=== PATIENT | female | born 2000 | race Caucasian/White ===

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

== ENCOUNTER 2021-01-16 00:48 | Emergency (ER) | payer MEDICAID ==
[~2021-01-16] VITALS: Ht 15.1 cm; Wt 70.3 kg
--- NOTE | 2021-01-16 01:39 | ED Back Pain ---
General Stated Complaint: 13 WKS PREG,CRAMPING OF BACK & SIDES,VOMITING Source of Information: Patient History of Present Illness Date Seen by Provider: Jan 16, 2021 Time Seen by Provider: 01:25 Initial Comments PT ARRIVES VIA POV FROM HOME PT C/O CRAMPING IN LOWER BACK AND BILATERAL FLANK AREA FOR THE LAST WEEK, WORSE TODAY NO ABDOMINAL PAIN NO VAGINAL BLEEDING OR DISCHARGE NO FEVER + NAUSEA, NO VOMITING. NO DIARRHEA NO URINARY SYMPTOMS HAS NOT TAKEN ANYTHING FOR PAIN AT ANY TIME PT STATES SHE IS --DOES NOT KNOW WHEN HER LMP WAS OR HOW FAR ALONG SHE IS DELIVERED 06/07/20, THEN GOT , HAD A MISCARRIAGE 10/06/21--DOES NOT KNOW IF SHE HAS HAD A PERIOD SINCE SHE HAD MISCARRIAGE. DID NOT REQUIRE A D&C. SAW DR. MENESES TODAY FOR THIS PROBLEM. STATES SHE HEARD HEART BEAT. NO TESTS DONE, PER PT. PT HAS HAD 6 VISITS HERE SINCE 10/18/21--ALL FOR PANIC ATTACKS/ANXIETY, EXCEPT FOR THIS VISIT MUCH LATER PT STATES SHE HAD ULTRASOUND SOMETIME LAST MONTH, THAT SHOWED HER TO BE 9 WEEKS GESTATION. Other Comments PCP: [facility], DR MENESES Allergies and Home Medications Allergies Uncoded Allergies: PCN (Allergy, Mild, RASH, 03/01/15) Home Medications Doxylamine Succinate/Vit B6 1 Each Tablet., 2 EACH PO HS Prescribed by: PAM VELEZ on 11/13/20 0413 Ferrous Sulfate 325 Mg Tablet, 325 MG PO DAILY Prescribed by: JOCELYN MENESES on 06/08/20 141 Hydroxyzine Pamoate 25 Mg Capsule, 25 MG PO Q6H PRN for ANXIETY Prescribed by: PAM VELEZ on 10/18/20 0137 Ibuprofen 600 Mg Tablet, 600 MG PO Q6H PRN for PAIN-MODERATE (5-7) Prescribed by: JOCELYN MENESES on 06/08/20 141 Loratadine 10 Mg Tablet, 10 MG PO DAILY, (Reported) Vit No.124/Iron/FA 1 Each Tablet, 1 EACH PO DAILY Prescribed by: JOCELYN MENESES on 06/08/20 141 Patient Home Medication List Home Medication List Reviewed: Yes Review of Systems Constitutional: no symptoms reported Gastrointestinal: see HPI; No abdominal pain, No constipation, No diarrhea; nausea; No vomiting Genitourinary: no symptoms reported : Yes LMP: Oct 06, 2020 (MISCARRIAGE) Control/STD Prophylaxis: None Musculoskeletal: see HPI, back pain Skin: no symptoms reported Psychiatric/Neurological: No Symptoms Reported Past Jnrcdkf-Ylebbi-Zlpjfh Hx Past Med/Social Hx: Reviewed and Corrections made Patient Social History Alcohol Use: Denies Use Drug of Choice: C Smoking Status: Current Everyday Smoker (1/2 PPD) Type Used: Cigarettes 2nd Hand Smoke Exposure: No Recent Hopitalizations: No Substance type: Marijuana Immunizations Up To Date Tetanus Booster (TDap): Unknown PED Vaccines UTD: Yes Seasonal Allergies Seasonal Allergies: Yes Past Medical History Surgeries: No Respiratory: No Cardiac: No Neurological: Yes Headaches /Migraines : Yes Reproductive Disorders: Yes Female Reproductive Disorders: Ovarian Cyst Sexually Transmitted Disease: Yes (CHLAMYDIA AND TRICHOMONAS) Genitourinary: No Gastrointestinal: Yes Gastroesophageal Reflux, Hiatal Hernia Musculoskeletal: No Endocrine: No HEENT: No Cancer: No Psychosocial: Yes Anxiety, Depression Integumentary: No Blood Disorders: No Adverse Reaction/Blood Tranf: No Family Medical History FH: ovarian cancer 19 MOTHER Guillain-Bricelyn syndrome 19 MOTHER No Pertinent Family Hx Physical Exam Vital Signs Vital Signs - First Documented 01/16/21 01:24 Temp 36.5 Pulse 89 Resp 18 B/P (MAP) 103/59 Pulse Ox 100 Capillary Refill : Height, Weight, BMI Height: 5'5" Weight: 120lbs. oz. 54.939203cp; 24.00 BMI Method:Stated General Appearance: No Apparent Distress, WD/WN, Other (WALKS UPRIGHT AND MOVES WITHOUT DIFFICULTY. DOES NOT APPEAR TO BE IN ANY DISCOMFORT OR DISTRESS. ) Cardiovascular: Regular Rate, Rhythm, No Edema, No Murmur, Normal Peripheral Pulses Respiratory: Normal Breath Sounds Gastrointestinal: Normal Bowel Sounds, No Organomegaly, No Pulsatile Mass, Non Tender, Soft, Other (UNABLE TO PALPATE FUNDUS. ) Back: Other (MILD BILATERAL FLANK AND LOWER LUMBAR TENDERNESS. 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 Skin: Normal Color, Warm/Dry, Tattoos/Piercings (MULTIPLE TATTOOS) Progress/Results/Core Measures Results/Orders Lab Results Laboratory Tests Test 01/16/21 02:00 Range/Units Urine Color YELLOW Urine Clarity CLEAR Urine pH 7.0 5-9 Urine Specific [place] 1.020 1.016-1.022 Urine Protein NEGATIVE NEGATIVE Urine Glucose (UA) NEGATIVE NEGATIVE Urine Ketones NEGATIVE NEGATIVE Urine Nitrite NEGATIVE NEGATIVE Urine Bilirubin NEGATIVE NEGATIVE Urine Urobilinogen 0.2 < = 1.0 MG/DL Urine Leukocyte Esterase NEGATIVE NEGATIVE Urine RBC (Auto) NEGATIVE NEGATIVE Urine RBC NONE /HPF Urine WBC NONE /HPF Urine Squamous Epithelial Cells 5-10 /HPF Urine Crystals PRESENT H /LPF Urine Amorphous Sediment LARGE ELIDIA URATES H /LPF Urine Bacteria NEGATIVE /HPF Urine Casts NONE /LPF Urine Mucus NEGATIVE /LPF Urine Culture Indicated NO Urine Opiates Screen NEGATIVE NEGATIVE Urine Oxycodone Screen NEGATIVE NEGATIVE Urine Methadone Screen NEGATIVE NEGATIVE Urine Propoxyphene Screen NEGATIVE NEGATIVE Urine Barbiturates Screen NEGATIVE NEGATIVE Ur Tricyclic Antidepressants Screen NEGATIVE NEGATIVE Urine Phencyclidine Screen NEGATIVE NEGATIVE Urine Amphetamines Screen NEGATIVE NEGATIVE Urine Methamphetamines Screen NEGATIVE NEGATIVE Urine Benzodiazepines Screen NEGATIVE NEGATIVE Urine Cocaine Screen NEGATIVE NEGATIVE Urine Cannabinoids Screen NEGATIVE NEGATIVE My Orders Orders - YVETTE STRANGE DO Heart Tones (01/16/21 01:32) Straight Cath For Spec.-Adult (01/16/21 01:32) Ua Culture If Indicated (01/16/21 01:32) Drug Screen Stat (Urine) (01/16/21 01:39) Vital Signs/I&O 01/16/21 01/16/21 01:24 03:13 Temp 36.5 Pulse 89 75 Resp 18 18 B/P (MAP) 103/59 Pulse Ox 100 99 Progress Progress Note : Progress Note FHT'S 154 NO COMPLAINT OF PAIN FOR REMAINDER OF ER STAY AND SLEPT SOUNDLY FOR REMAINDER OF ER STAY Departure Impression Primary Impression: LOW BACK PAIN IN EARLY Disposition: HOME, SELF-CARE Condition: Stable Departure-Patient Inst. Referrals: JOCELYN MENESES MD (PCP/Family) Primary Care Physician Patient Instructions: How to Adapt to Physical Changes During , How to Plan and Prepare for a Healthy Add. Discharge Instructions: MOIST HEAT TO BACK TYLENOL NEEDED FOR PAIN FOLLOW UP WITH DR. MENESES THIS WEEK FOR FURTHER CARE YVETTE STRANGE DO Jan 16, 2021 01:39
[2021-01-16 02:07] LABS: BILIRUBIN,URINE NEGATIVE (NEGATIVE); CLARITY,URINE CLEAR; COLOR,URINE YELLOW; GLUCOSE, URINE (UA) NEGATIVE (NEGATIVE); KETONES,URINE NEGATIVE (NEGATIVE); LEUKOCYTE ESTERASE ,URINE NEGATIVE (NEGATIVE); NITRITE,URINE NEGATIVE (NEGATIVE); PROTEIN,URINE NEGATIVE (NEGATIVE)
[2021-01-16 02:15] LABS: AMORPHOUS SEDIMENT,UR LARGE AMOR URATES /LPF; BACTERIA,URINE NEGATIVE /HPF
[2021-01-16 02:19] LABS: AMPHETAMINE SCREEN, URINE NEGATIVE (NEGATIVE); BENZODIAZEPINES SCREEN URINE NEGATIVE (NEGATIVE); COCAINE SCREEN URINE NEGATIVE (NEGATIVE); METHAMPHETAMINE SCREEN URINE S NEGATIVE (NEGATIVE)
[2021-01-16 02:20] LABS: BARBITURATE SCREEN URINE NEGATIVE (NEGATIVE); CANNABINOID SCREEN, URINE NEGATIVE (NEGATIVE); METHADONE STAT NEGATIVE (NEGATIVE); OPIATE SCREEN URINE NEGATIVE (NEGATIVE); OXYCODONE STAT NEGATIVE (NEGATIVE); PROPOXYPHENE STAT NEGATIVE (NEGATIVE); TRICYCLIC ANTIDEPRESSANTS SCRE NEGATIVE (NEGATIVE)
== END 2021-01-16 03:15 | disposition home or self-care (01) ==
LOC: EDUNIT# 00:48 → ER 00:52
DX: O26.891 Other specified pregnancy related conditions, first trimester (principal); M54.5 Low back pain; F41.9 Anxiety disorder, unspecified; F17.210 Nicotine dependence, cigarettes, uncomplicated; Z3A.09 9 weeks gestation of pregnancy; Z88.0 Allergy status to penicillin; Z80.41 Family history of malignant neoplasm of ovary
CPT/HCPCS: 51701; 80306; 81000

== ENCOUNTER 2021-02-08 23:38 | Emergency (ER) | payer MEDICAID ==
[~2021-02-08] VITALS: Ht 151 cm; Wt 72.0 kg
[2021-02-09] MEDS ORDERED: ACETAMINOPHEN 500 MG TAB (TYLENOL) PO ONE (00:15)
[2021-02-09 00:18] LABS: BILIRUBIN,URINE NEGATIVE (NEGATIVE); CLARITY,URINE CLEAR; COLOR,URINE YELLOW; GLUCOSE, URINE (UA) NEGATIVE (NEGATIVE); KETONES,URINE TRACE (NEGATIVE); LEUKOCYTE ESTERASE ,URINE TRACE (NEGATIVE); NITRITE,URINE NEGATIVE (NEGATIVE); PROTEIN,URINE NEGATIVE (NEGATIVE)
--- NOTE | 2021-02-09 00:20 | ED Abdominal Pain ---
General Chief Complaint: Abdominal/GI Problems Stated Complaint: 17 WKS PREG,STABBING PAIN FROM FRONT ABD TO BACK Nursing Triage Note: intermittant abdominal pain Sepsis Screen: No Definite Risk Source of Information: Patient Exam Limitations: No Limitations History of Present Illness Date Seen by Provider: Feb 09, 2021 Time Seen by Provider: 00:05 Initial Comments Patient is a 21-year-old female who presents to the emergency department today with a chief complaint of left upper quadrant and left flank pain. Patient states onset of pain was a couple of hours prior to arrival. Patient states that the pain comes in waves. She states that she is a little bit nauseated with the pain. Initially she was nauseated prior to the onset. She states that her sister had similar symptoms when she had a gallbladder issue. Patient is approximately 17 weeks with an estimated due date of July 20, 2021. This is her third . She follows with Dr. Meneses. Patient has an appointment the of this month for follow-up. She denies any recent fevers, chills, shortness of breath or cough. No urinary complaints. No diarrheal complaints. She states she ate normally today. Patient states the pain seems to be referred to her left shoulder blade. Nothing makes the pain any worse and nothing has made it any better. She has not taken any medications to try and alleviate the symptoms. All other review of systems reviewed and negative except as stated above. Timing/Duration: 1-3 Hours Severity/Quality: Moderate, Cramping, Sharp Location: LUQ Radiation: Flank (Left), Scapula (Left) Activities at Onset: None Associated Symptoms: Denies Symptoms Allergies and Home Medications Allergies Uncoded Allergies: PCN (Allergy, Mild, RASH, 03/01/15) Home Medications Doxylamine Succinate/Vit B6 1 Each Tablet., 2 EACH PO HS Prescribed by: PAM VELEZ on 11/13/20 0413 Ferrous Sulfate 325 Mg Tablet, 325 MG PO DAILY Prescribed by: JOCELYN MENESES on 06/08/20 1413 Hydroxyzine Pamoate 25 Mg Capsule, 25 MG PO Q6H PRN for ANXIETY Prescribed by: PAM VELEZ on 10/18/20 0137 Ibuprofen 600 Mg Tablet, 600 MG PO Q6H PRN for PAIN-MODERATE (5-7) Prescribed by: JOCELYN MENESES on 06/08/20 1413 Loratadine 10 Mg Tablet, 10 MG PO DAILY, (Reported) Vit No.124/Iron/FA 1 Each Tablet, 1 EACH PO DAILY Prescribed by: JOCELYN MENESES on 06/08/20 1413 Patient Home Medication List Home Medication List Reviewed: Yes Review of Systems Review of Systems Constitutional: see HPI EENTM: No Symptoms Reported Respiratory: See HPI Cardiovascular: No Symptoms Reported Gastrointestinal: Abdominal Pain (Left upper quadrant), Nausea Genitourinary: No Symptoms Reported Musculoskeletal: no symptoms reported Skin: no symptoms reported All Other Systems Reviewed Negative Unless Noted: Yes Past Veszjry-Eqmcsa-Pmtxhr Hx Patient Social History Alcohol Use: Denies Use Drug of Choice: thc Smoking Status: Current Everyday Smoker Type Used: Cigarettes 2nd Hand Smoke Exposure: No Recent Infectious Disease Expo: No Recent Hopitalizations: No Immunizations Up To Date Tetanus Booster (TDap): Less than 5yrs PED Vaccines UTD: Yes Seasonal Allergies Seasonal Allergies: Yes Past Medical History Surgeries: No Respiratory: No Cardiac: No Neurological: Yes Headaches /Migraines : Yes Expected Date of Delivery: Jul 18, 2021 Hx : 3 Hx Para: 2 Reproductive Disorders: Yes Female Reproductive Disorders: Ovarian Cyst Sexually Transmitted Disease: Yes (CHLAMYDIA AND TRICHOMONAS) Genitourinary: No Gastrointestinal: Yes Gastroesophageal Reflux, Hiatal Hernia Musculoskeletal: No Endocrine: No HEENT: No Cancer: No Psychosocial: Yes Anxiety, Depression Integumentary: No Blood Disorders: No Adverse Reaction/Blood Tranf: No Family Medical History FH: ovarian cancer 19 MOTHER Guillain-[place] syndrome 19 MOTHER No Pertinent Family Hx Physical Exam Vital Signs Vital Signs - First Documented 02/08/21 23:47 Temp 35.9 Pulse 91 Resp 18 B/P (MAP) 113/69 (84) Pulse Ox 98 O2 Delivery Room Air Capillary Refill : Less Than 3 Seconds Height/Weight/BMI Height: 5'5" Weight: 120lbs. oz. 54.860241hn; 31.00 BMI Method:Stated General Appearance: WD/WN, no apparent distress Neck: full range of motion Respiratory: lungs clear, normal breath sounds, no respiratory distress, no accessory muscle use Cardiovascular: regular rate, rhythm Gastrointestinal: non tender, soft Extremities: normal range of motion, normal inspection, no pedal edema Back: normal inspection Neurologic/Psychiatric: alert, normal mood/affect, oriented x 3 Skin: normal color, warm/dry Progress/Results/Core Measures Results/Orders Lab Results Laboratory Tests Test 02/09/21 00:00 Range/Units Urine Color YELLOW Urine Clarity CLEAR Urine pH 6.0 5-9 Urine Specific [place] 1.025 H 1.016-1.022 Urine Protein NEGATIVE NEGATIVE Urine Glucose (UA) NEGATIVE NEGATIVE Urine Ketones TRACE H NEGATIVE Urine Nitrite NEGATIVE NEGATIVE Urine Bilirubin NEGATIVE NEGATIVE Urine Urobilinogen 0.2 < = 1.0 MG/DL Urine Leukocyte Esterase TRACE H NEGATIVE Urine RBC (Auto) NEGATIVE NEGATIVE Urine RBC NONE /HPF Urine WBC RARE /HPF Urine Squamous Epithelial Cells 0-2 /HPF Urine Crystals NONE /LPF Urine Bacteria TRACE /HPF Urine Casts NONE /LPF Urine Mucus SMALL H /LPF Urine Culture Indicated NO My Orders Orders - GUY FERNANDO MD Ua Culture If Indicated (02/09/21 00:10) Acetaminophen Tablet (Tylenol Tablet) (02/09/21 00:15) Medications Given in ED Current Medications Medications Dose Ordered Sig/Liz Route Start Time Stop Time Status Last Admin Dose Admin Acetaminophen 1,000 mg ONCE ONCE PO 02/09/21 00:15 02/09/21 00:16 DC 02/09/21 00:38 1,000 MG Vital Signs/I&O 02/08/21 02/09/21 23:47 00:38 Temp 35.9 35.9 Pulse 91 Resp 18 B/P (MAP) 113/69 (84) Pulse Ox 98 O2 Delivery Room Air Blood Pressure Mean: 84 Progress Progress Note : Time: 00:18 Progress Note heart tones in the 130s. Patient exam is relatively benign. She has minimal tenderness in the left upper quadrant. No right upper quadrant tenderness, negative West sign. Patient did obtain a urine sample for us to rule out hematuria, signs of kidney stone. She appears comfortable. She is in no acute distress. Disposition to be determined after urine sample is resulted. Patient is treated in the emergency department with a gram of Tylenol for discomfort. 0047 Urine looks good, although a little concentrated, reflecting maybe a little mild dehydrations, positive for trace ketones. Patient re-checked and states that her pain is back a little. Will re-assess her in about 30 minutes, once the tylenol has had time to kick in. Again, her abdominal exam is benign. No rebound, guarding or West's sign. FHT are good. She is afebrile and not tachycardic. CLinically appears well. She has no clinical or objective findings to warrant further laboratory evaluation or imaging. WIll plan to d/c with tylenol for home, plenty of fluids and recheck with Dr Meneses at her appointment on the . Departure Impression Primary Impression: Qualified Codes: Z3A.17 - 17 weeks gestation of Additional Impression: Abdominal pain Qualified Codes: R10.12 - Left upper quadrant pain Disposition: HOME, SELF-CARE Condition: Stable Departure-Patient Inst. Decision time for Depature: 00:51 Referrals: JOCELYN MENESES MD (PCP/Family) Primary Care Physician Patient Instructions: - The Fifth Month Add. Discharge Instructions: Drink plenty of fluids to stay well hydrated. You can take over the counter extra strength tylenol every 4-6 hours as needed for pain. If you have fever, vomiting, worsening pain, please come back to the Emergency Department for re-evaluation. Please keep your scheduled appointment with Dr Meneses this week. GUY FERNANDO MD Feb 09, 2021 00:20
[2021-02-09 00:28] LABS: BACTERIA,URINE TRACE /HPF; SQUAMOUS EPITHELIAL CELL,UR 0-2 /HPF; WBC,URINE RARE /HPF
[2021-02-09 01:20] VITALS: BP 112/67
== END 2021-02-09 01:22 | disposition home or self-care (01) ==
LOC: EDUNIT# 23:38 → ER 23:40
DX: O26.893 Other specified pregnancy related conditions, third trimester (principal); R10.12 Left upper quadrant pain; F41.9 Anxiety disorder, unspecified; F17.210 Nicotine dependence, cigarettes, uncomplicated; Z88.0 Allergy status to penicillin; Z3A.00 Weeks of gestation of pregnancy not specified
CPT/HCPCS: 81000

== ENCOUNTER 2021-02-24 22:54 | Emergency (ER) | payer MEDICAID ==
[~2021-02-24] VITALS: Ht 168 cm; Wt 75.0 kg
--- NOTE | 2021-02-24 23:50 | ED Cough/URI ---
General Chief Complaint: Cough/Cold/Flu Symptoms Stated Complaint: COUGH / SOB / SORE THROAT Source: patient History of Present Illness Date Seen by Provider: February 24, 2021 Time Seen by Provider: 23:08 Initial Comments PT ARRIVES VIA POV FROM HOME C/O COUGH AND CONGESTION FOR A FEW WEEKS--SINCE AROUND 02/02/21 COUGH WAS PRODUCTIVE WITH GREEN SPUTUM, NOW IS NON-PRODUCTIVE NO CHEST PAIN SLIGHT SHORTNESS OF BREATH--MOSTLY WITH COUGHING OCCASIONALLY "VOMITS" DUE TO COUGHING AND DRAINAGE NO NAUSEA OR DIARRHEA, AND NO VOMITING OTHER THAN WITH COUGHING/DRAINAGE NO FEVER C/O SORE THROAT NO LOSS OF TASTE OR SMELL NO HEADACHE NO BODY ACHES NO KNOWN EXPOSURE TO COVID-19, PER PT PT TESTED NEGATIVE FOR COVID-19 ON 02/03/21 AT [facility]. WAS SEEN LAST WEEK AT [facility] FOR THIS PROBLEM, AND WAS PRESCRIBED AN UNKNOWN ANTIBIOTIC AND 2 INHALERS--PER MED RECONCILIATION, PT FILLED RX FOR CEFDINIR ON 02/15/21, AND FILLED RX FOR ALBUTEROL INHALER TODAY. STATES SHE HAS GOTTEN BETTER ON THE ANTIBIOTIC AND HAS 2 DAYS LEFT HAS NOT USED THE INHALER TODAY HAS FLONASE NASAL SPRAY AT HOME, BUT HAS NOT USED IT TODAY PT IS 19 WEEKS PT IS AB 1 PT DELIVERED 05/2020, GOT AGAIN AND HAD A MISCARRIAGE IN SEPTEMBER 2020, AND IS AGAIN. NO ABDOMINAL PAIN NO VAGINAL BLEEDING OR DISCHARGE NO URINARY SYMPTOMS SAW DR. MENESES LAST WEEK FOR OB VISIT, AND HAD ROUTINE LAB DONE. DID NOT DISCUSS THIS PROBLEM CURRENT SYMPTOMS ARE NO DIFFERENT TONIGHT IN ANY WAY, AND ARE MUCH BETTER OVERALL SINCE STARTING ON THE ANTIBIOTIC. PT HERE BECAUSE SHE WANTS TESTED FOR COVID-19 AGAIN. PT WITH A MULTITUDE OF VISITS--VARIOUS COMPLAINTS, MANY FOR ANXIETY-RELATED COMPLAINTS. THIS IS PT'S 6TH VISIT IN 2020 LAST VISIT WAS 02/06/21 FOR COMPLAINT OF ABDOMINAL PAIN --WORK UP NEGATIVE AT THAT TIME PT HAS NOT HAD ANY ABDOMINAL PAIN SINCE THEN PCP: [facility], DR. MENESES Allergies and Home Medications Allergies Uncoded Allergies: PCN (Allergy, Mild, RASH, 03/01/15) Home Medications Azelastine HCl 137 Mcg/0.137 Ml [place].pump, 137 MCG NS BID Prescribed by: YVETTE STRANGE on 02/25/21 0017 Doxylamine Succinate/Vit B6 1 Each Tablet.dr, 2 EACH PO HS Prescribed by: PAM VELEZ on 11/13/20 0413 Ferrous Sulfate 325 Mg Tablet, 325 MG PO DAILY Prescribed by: JOCELYN MENESES on 06/08/20 141 Hydroxyzine Pamoate 25 Mg Capsule, 25 MG PO Q6H PRN for ANXIETY Prescribed by: PAM VELEZ on 10/18/20 0137 Ibuprofen 600 Mg Tablet, 600 MG PO Q6H PRN for PAIN-MODERATE (5-7) Prescribed by: JOCELYN MEENSES on 06/08/20 141 Loratadine 10 Mg Tablet, 10 MG PO DAILY, (Reported) Vit No.124/Iron/FA 1 Each Tablet, 1 EACH PO DAILY Prescribed by: JOCELYN MENESES on 06/08/20 141 Patient Home Medication List Home Medication List Reviewed: Yes Review of Systems Review of Systems Constitutional: no symptoms reported; No chills, No diaphoresis, No dizziness, No fever, No malaise, No weakness EENTM: see HPI, nose congestion, throat pain Respiratory: see HPI, cough, phlegm; No short of breath, No wheezing Cardiovascular: no symptoms reported; No chest pain, No edema, No palpitations, No syncope Gastrointestinal: see HPI; No abdominal pain, No diarrhea, No nausea; vomiting (VOMITING ONLY WITH COUGH/DRAINAGE) Genitourinary: no symptoms reported : Yes Expected Date of Delivery: Jul 20, 2021 Musculoskeletal: no symptoms reported; No back pain Skin: no symptoms reported Psychiatric/Neurological: No Symptoms Reported Hematologic/Lymphatic: No Symptoms Reported Immunological/Allergic: no symptoms reported Past Kistqhw-Ivxdfr-Hjtkeh Hx Patient Social History Alcohol Use: Denies Use Drug of Choice: THC Smoking Status: Current Everyday Smoker Type Used: Cigarettes 2nd Hand Smoke Exposure: No Recent Hopitalizations: No Substance type: Marijuana Immunizations Up To Date Tetanus Booster (TDap): Less than 5yrs PED Vaccines UTD: Yes Seasonal Allergies Seasonal Allergies: Yes Past Medical History Surgeries: No Respiratory: No Cardiac: No Neurological: Yes Headaches /Migraines : Yes Hx : 3 Hx Para: 1 Hx Total # of Abortions (Sp): 1 Reproductive Disorders: Yes Female Reproductive Disorders: Ovarian Cyst Sexually Transmitted Disease: Yes (CHLAMYDIA AND TRICHOMONAS) Genitourinary: No Gastrointestinal: Yes Gastroesophageal Reflux, Hiatal Hernia Musculoskeletal: No Endocrine: No HEENT: No Cancer: No Psychosocial: Yes Anxiety, Depression Integumentary: No Blood Disorders: No Adverse Reaction/Blood Tranf: No Family Medical History FH: ovarian cancer 19 MOTHER Guillain-Toivola syndrome 19 MOTHER No Pertinent Family Hx SOCIAL HISTORY: -ETOH--DENIES USE -DRUGS--+ THC USE -SMOKES 1/2 PPD Physical Exam Vital Signs - First Documented 02/24/21 23:06 Temp 36.4 Pulse 98 Resp 17 B/P (MAP) 105/59 (74) Pulse Ox 98 O2 Delivery Room Air Capillary Refill : Height: 5'5" Weight: 120lbs. oz. 54.673959ow; 31.00 BMI Method:Stated General Appearance: WD/WN, no apparent distress, other (DOES NOT APPEAR ILL OR TO BE IN ANY DISCOMFORT OR DISTRESS. NO COUGH OR DYSPNEA NOTED. ) HEENT: PERRL/EOMI, normal ENT inspection, TMs normal, pharynx normal, other (MILD NASAL CONGESTION AND MINIMAL POST NASAL DRAINAGE. ) Neck: normal inspection Respiratory: normal breath sounds, no respiratory distress, no accessory muscle use Cardiovascular: regular rate, rhythm, no murmur Gastrointestinal: non tender, soft, other (GRAVUD UTERUS--2 FB'S BELOW UMBILICUS. 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, no motor/sensory deficits, alert, normal mood/affect, oriented x 3 Skin: normal color, warm/dry Progress/Results/Core Measures Suspected Sepsis SIRS Temperature: Pulse: Respiratory Rate: Blood Pressure / Mean: Results/Orders Lab Results Laboratory Tests Test 02/24/21 00:00 02/24/21 23:15 Range/Units Urine Color YELLOW Urine Clarity CLEAR Urine pH 7.0 5-9 Urine Specific [place] 1.020 1.016-1.022 Urine Protein NEGATIVE NEGATIVE Urine Glucose (UA) NEGATIVE NEGATIVE Urine Ketones 1+ H NEGATIVE Urine Nitrite NEGATIVE NEGATIVE Urine Bilirubin NEGATIVE NEGATIVE Urine Urobilinogen 0.2 < = 1.0 MG/DL Urine Leukocyte Esterase 2+ H NEGATIVE Urine RBC (Auto) NEGATIVE NEGATIVE Urine RBC NONE /HPF Urine WBC RARE /HPF Urine Squamous Epithelial Cells 5-10 /HPF Urine Crystals NONE /LPF Urine Bacteria FEW H /HPF Urine Casts NONE /LPF Urine Mucus NEGATIVE /LPF Urine Culture Indicated NO Urine Opiates Screen NEGATIVE NEGATIVE Urine Oxycodone Screen NEGATIVE NEGATIVE Urine Methadone Screen NEGATIVE NEGATIVE Urine Propoxyphene Screen NEGATIVE NEGATIVE Urine Barbiturates Screen NEGATIVE NEGATIVE Ur Tricyclic Antidepressants Screen NEGATIVE NEGATIVE Urine Phencyclidine Screen NEGATIVE NEGATIVE Urine Amphetamines Screen NEGATIVE NEGATIVE Urine Methamphetamines Screen NEGATIVE NEGATIVE Urine Benzodiazepines Screen NEGATIVE NEGATIVE Urine Cocaine Screen NEGATIVE NEGATIVE Urine Cannabinoids Screen NEGATIVE NEGATIVE Coronavirus 2019 (JUDY) Not Detected Not Detecte Group A Streptococcus Screen NEGATIVE NEGATIVE Micro Results Microbiology 02/24/21 Influenza Types A,B Antigen (HALLE) - Final, Complete My Orders Orders - YVETTE STRANGE DO Heart Tones (02/24/21 23:08) Rapid Strep A Screen (02/24/21 23:08) Influenza A And B Antigens (02/24/21 23:08) Covid 19 Inhouse Test (02/24/21 23:08) Drug Screen Stat (Urine) (02/24/21 23:58) Ua Culture If Indicated (02/24/21 23:58) Vital Signs/I&O 02/24/21 23:06 Temp 36.4 Pulse 98 Resp 17 B/P (MAP) 105/59 (74) Pulse Ox 98 O2 Delivery Room Air Capillary Refill : Progress Note : Progress Note PLACED IN ISOLATION ROOM PPE WORN AT ALL TIMES COVID-19 TESTING PERFORMED FHR 156 NO COUGH NO DYSPNEA NO HYPOXIA NO FEVER NO SYMPTOMS OF ANY KIND AT ANY TIME DURING ER STAY Departure Impression Primary Impression: Upper respiratory infection Disposition: 01 HOME, SELF-CARE Condition: Stable Departure-Patient Inst. Referrals: JOCLEYN MENESES MD (PCP/Family) Primary Care Physician Patient Instructions: Upper Respiratory Infection ED Add. Discharge Instructions: FINISH ANTIBIOTIC PRESCRIBED USE ALBUTEROL INHALER PRESCRIBED, NEEDED FOR WHEEZING OR SHORTNESS OF BREATH TYLENOL NEEDED FOR PAIN FREQUENT SALT WATER GARGLES FOR THROAT PAIN USE YOUR FLONASE NASAL SPRAY EVERY DAY ANY MEDICATIONS FOR COUGH AND CONGESTION TO BE AT DR. MENESES'S INSTRUCTIONS FOLLOW UP WITH DR. MENESES IN 4-5 DAYS IF NO BETTER All discharge instructions reviewed with patient and/or family. Voiced understanding. Scripts Azelastine HCl (Azelastine HCl) 137 Mcg/0.137 Ml Trim[place].pump 137 MCG NS BID, #1 EA Prov: YVETTE STRANGE DO 02/25/21 YVETTE STRANGE DO February 24, 2021 23:50
[2021-02-25 00:06] LABS: BILIRUBIN,URINE NEGATIVE (NEGATIVE); CLARITY,URINE CLEAR; COLOR,URINE YELLOW; GLUCOSE, URINE (UA) NEGATIVE (NEGATIVE); KETONES,URINE 1+ (NEGATIVE); LEUKOCYTE ESTERASE ,URINE 2+ (NEGATIVE); NITRITE,URINE NEGATIVE (NEGATIVE); PROTEIN,URINE NEGATIVE (NEGATIVE)
[2021-02-25 00:13] LABS: BACTERIA,URINE FEW /HPF; WBC,URINE RARE /HPF
[2021-02-25 00:16] LABS: AMPHETAMINE SCREEN, URINE NEGATIVE (NEGATIVE); BARBITURATE SCREEN URINE NEGATIVE (NEGATIVE); BENZODIAZEPINES SCREEN URINE NEGATIVE (NEGATIVE); CANNABINOID SCREEN, URINE NEGATIVE (NEGATIVE); COCAINE SCREEN URINE NEGATIVE (NEGATIVE); METHADONE STAT NEGATIVE (NEGATIVE); METHAMPHETAMINE SCREEN URINE S NEGATIVE (NEGATIVE); OPIATE SCREEN URINE NEGATIVE (NEGATIVE); OXYCODONE STAT NEGATIVE (NEGATIVE); PROPOXYPHENE STAT NEGATIVE (NEGATIVE); TRICYCLIC ANTIDEPRESSANTS SCRE NEGATIVE (NEGATIVE)
[2021-02-25] MEDS ORDERED: AZEL137S11 NS (00:17)
[2021-02-25 00:24] VITALS: BP 98/61
== END 2021-02-25 00:24 | disposition home or self-care (01) ==
LOC: EDUNIT# 22:54 → ER 22:55
DX: J06.9 Acute upper respiratory infection, unspecified (principal); F41.9 Anxiety disorder, unspecified; F17.210 Nicotine dependence, cigarettes, uncomplicated; Z20.822 Contact with and (suspected) exposure to COVID-19; Z88.0 Allergy status to penicillin; Z79.899 Other long term (current) drug therapy
CPT/HCPCS: 80306; 81000; 87430; 87804; 99283; U0002; 87635

== ENCOUNTER 2021-05-16 20:55 | Outpatient (CLI) | payer MEDICAID ==
[~2021-05-16 20:55] MED LIST changes: +AZEL137S11 NS
[2021-05-16 21:20] VITALS: BP 123/58
[2021-05-16 21:23] VITALS: BP 123/58
[2021-05-16 21:24] LABS: CLARITY,URINE SL CLOUDY; COLOR,URINE YELLOW
[2021-05-16 21:25] LABS: BILIRUBIN,URINE NEGATIVE (NEGATIVE); GLUCOSE, URINE (UA) NEGATIVE (NEGATIVE); KETONES,URINE NEGATIVE (NEGATIVE); LEUKOCYTE ESTERASE ,URINE 1+ (NEGATIVE); NITRITE,URINE NEGATIVE (NEGATIVE); PROTEIN,URINE NEGATIVE (NEGATIVE)
[2021-05-16 21:28] VITALS: BP 123/58
[2021-05-16 21:31] LABS: AMORPHOUS SEDIMENT,UR MOD AMOR PHOSPHATE /LPF; BACTERIA,URINE TRACE /HPF; WBC,URINE 0-2 /HPF
[2021-05-16] MEDS ORDERED: ACETAMINOPHEN 500 MG TAB (TYLENOL) ONE (22:07)
[2021-05-16] MEDS ORDERED: ACETAMINOPHEN 500 MG TAB (TYLENOL) PO ONE (22:14)
--- NOTE | 2021-05-17 08:29 | Physician Query-Final Dx ---
JAMIL MADISON 05/17/21 0829: Clinic Account Progress/Dx Physician Query: Please give diagnosis Please include # weeks gestation Date of Service May 16, 2021 at 20:55 IRVIN FAULKNER DO 05/21/21 0847: Clinic Account Progress/Dx DIAGNOSIS: Diagnosis 30 week GA back pain JAMIL MADISON May 17, 2021 08:29 IRVIN FAULKNER DO May 21, 2021 08:47
== END 2021-05-16 23:20 | disposition home or self-care (01) ==
LOC: WSo 20:55 → LDRP 20:56 → WSo 23:20
PROVIDERS: ATTEND Family Medicine
DX: O26.893 Other specified pregnancy related conditions, third trimester (principal); R25.2 Cramp and spasm; Z3A.31 31 weeks gestation of pregnancy
CPT/HCPCS: 81000; 87210; G0463; 99213

== ENCOUNTER 2021-06-05 16:19 | Outpatient (CLI) | payer MEDICAID ==
[~2021-06-05] VITALS: Ht 162.6 cm; Wt 89.3 kg
[2021-06-05 16:40] VITALS: BP 103/59
[2021-06-05 17:12] VITALS: BP 107/51
[2021-06-05 17:16] LABS: BILIRUBIN,URINE NEGATIVE (NEGATIVE); CLARITY,URINE CLOUDY; COLOR,URINE YELLOW; GLUCOSE, URINE (UA) NEGATIVE (NEGATIVE); KETONES,URINE 1+ (NEGATIVE); LEUKOCYTE ESTERASE ,URINE 2+ (NEGATIVE); NITRITE,URINE NEGATIVE (NEGATIVE); PH,URINE 6.5 (5-9); PROTEIN,URINE TRACE (NEGATIVE)
[2021-06-05 17:51] LABS: BACTERIA,URINE LARGE /HPF
--- NOTE | 2021-06-06 08:58 | Physician Query-Final Dx ---
Clinic Account Progress/Dx Physician Query: Please give diagnosis Please include # weeks gestation Date of Service Jun 05, 2021 at 16:19 JAMIL MADISON Jun 06, 2021 08:58
== END 2021-06-05 18:10 | disposition home or self-care (01) ==
LOC: LDRP 16:19 → WSo 16:19
PROVIDERS: ATTEND Family Medicine
DX: Z34.90 Encounter for supervision of normal pregnancy, unspecified, unspecified trimester (principal); Z3A.00 Weeks of gestation of pregnancy not specified
CPT/HCPCS: 81000; 87088; Q0114; 36415; 89060; 99214

== ENCOUNTER 2021-06-19 18:13 | Outpatient (CLI) | payer MEDICAID ==
[~2021-06-19] VITALS: Ht 165.1 cm; Wt 89.9 kg
[2021-06-19 19:17] VITALS: BP 109/58
--- NOTE | 2021-06-20 08:07 | Physician Query-Final Dx ---
Clinic Account Progress/Dx Physician Query: Please give diagnosis Please include # weeks gestation Date of Service Jun 19, 2021 at 18:13 JAMIL MADISON Jun 20, 2021 08:07
== END 2021-06-19 20:15 ==
LOC: LDRP 18:13 → WSo 18:13
PROVIDERS: ATTEND Family Medicine
DX: O36.8930 Maternal care for other specified fetal problems, third trimester, not applicable or unspecified (principal); Z3A.35 35 weeks gestation of pregnancy
CPT/HCPCS: 59025

== ENCOUNTER → 2021-06-20 | Outpatient (CLI) | payer MEDICAID ==
--- NOTE | 2021-06-20 08:03 | Diagnostic Imaging Report ---
Indication: Small for gestational age Ultrasonography reveals bhardwaj intrauterine fetus in breech presentation. Amniotic fluid index is 9.4 cm. heart rate is 153 bpm. breathing motion as well as tone and limb movement are documented. IMPRESSION: Normal biophysical profile score of 8/8. Dictated by: Dictated on workstation # [id number]
== END ==
LOC: RAD 07:00
PROVIDERS: ATTEND Family Medicine
DX: O36.5930 Maternal care for other known or suspected poor fetal growth, third trimester, not applicable or unspecified (principal); Z3A.00 Weeks of gestation of pregnancy not specified
CPT/HCPCS: 76819

== ENCOUNTER 2021-07-01 08:55 | Inpatient (IN) | payer MEDICAID ==
[~2021-07-01] VITALS: Ht 165.1 cm; Wt 91.8 kg
[2021-07-01] VITALS (9 sets, daily range): BP systolic 94–113; BP diastolic 55–70
[2021-07-01 09:21] LABS: BILIRUBIN,URINE NEGATIVE (NEGATIVE); CLARITY,URINE CLEAR; COLOR,URINE YELLOW; GLUCOSE, URINE (UA) NEGATIVE (NEGATIVE); KETONES,URINE NEGATIVE (NEGATIVE); LEUKOCYTE ESTERASE ,URINE TRACE (NEGATIVE); NITRITE,URINE NEGATIVE (NEGATIVE); PROTEIN,URINE NEGATIVE (NEGATIVE)
[2021-07-01 09:32] LABS: BACTERIA,URINE TRACE /HPF
[2021-07-01] MEDS ORDERED: HYDR50TA76 PO (09:49)
[2021-07-01] MEDS ORDERED: CITRIC ACID/SOB CIT (BICITRA) 30 ML UDC PO ONE (11:00)
[2021-07-01] MEDS ORDERED: METOCLOPRAMIDE INJ 10 MG/2 ML (REGLAN) IV ONE (11:00)
[2021-07-01] MEDS ORDERED: ceFAZolin 2 GM IV Premixed 50 ML IV ONE (11:00)
[2021-07-01] MEDS ORDERED: FAMOTIDINE 20MG/2ML IV (PEPCID) IV ONE (11:00)
[2021-07-01] MEDS ORDERED: CATHETER FLUSH 10 ML SYR IV PRN (11:00)
[2021-07-01] MEDS ORDERED: LACTATED RINGERS 1,000 ML IV PRN (11:00)
[2021-07-01 11:16] LABS: BASOPHILS % (AUTO) 0 % (0-10); EOSINOPHILS # (AUTO) 0.1 10^3/uL (0.0-0.3); EOSINOPHILS % (AUTO) 1 % (0-10); HEMATOCRIT 35 % (35-52); HEMOGLOBIN 11.6 g/dL (11.5-16.0); LYMPHOCYTES # (AUTO) 1.7 10^3/uL (1.0-4.0); LYMPHOCYTES % (AUTO) 16 % (12-44); MEAN CORPUSCULAR HEMOGLOBIN 28 pg (25-34); MEAN CORPUSCULAR HGB CONC 33 g/dL (32-36); MEAN CORPUSCULAR VOLUME 84 fL (80-99); MEAN PLATELET VOLUME 11.2 fL (9.0-12.2); MONOCYTES # (AUTO) 0.9 10^3/uL (0.0-1.0); MONOCYTES % (AUTO) 8 % (0-12); NEUTROPHILS # (AUTO) 8.1 10^3/uL (1.8-7.8); NEUTROPHILS % (AUTO) 74 % (42-75); PLATELET COUNT 228 10^3/uL (130-400); WHITE BLOOD COUNT 10.8 10^3/uL (4.3-11.0)
[2021-07-01] MEDS ORDERED: fentaNYL INJ 100 MCG/2 ML AMP ONE (13:32)
[2021-07-01] MEDS ORDERED: ONDANSETRON 4 MG/2 ML (SDV) Z0FRAN ONE (13:32)
[2021-07-01] MEDS ORDERED: OXYTOCIN PRE-MIX DRIP 1,000 ML IV ONE (13:32)
--- NOTE | 2021-07-01 13:41 | History & Physical-OB ---
OB - Chief Complaint & HPI Date/Time Date of Admission: Date of Admission: Jul 01, 2021 at 10:00 Date seen by a Provider: Jul 01, 2021 Time Seen by a Provider: 09:30 Chief Complaint/History OB-Reason for Admission/Chief: Rupture of Membranes Hx : 3 Hx Para: 1 Expected Date of Delivery: Jul 20, 2021 Gestational Age in Weeks: 37 Gestational Age in Days: 2 Admission Nurse Assessment Rev: Yes History of Labs nitrazine positive with positive ferning Allergies and Home Medications Allergies Uncoded Allergies: PCN (Allergy, Mild, RASH, 03/01/15) Patient Home Medication List Home Medication List Reviewed: Yes Hydroxyzine HCl (Hydroxyzine HCl) 50 Mg Tablet, 50 MG PO DAILY, (Reported) Entered as Reported by: LANEY DOCKERY on 07/01/21 0949 Last Action: New Order Vit No.124/Iron/FA ( Vitamin Tablet) 1 Each Tablet, 1 EACH PO DAILY Prescribed by: JOCELYN MENESES on 06/08/20 1413 Last Action: Reviewed OB - History Hx of Present Care: Yes Ultrasounds: Normal mid trimester US Obstetrical Complications: None Medical Complications: None Obstetrical History Hx : 3 Hx Para: 1 Hx Termination: No Hx Total # of Abortions (Spona: 1 Hx Multiple Gestation: No Hx Stillbirth: No Hx Complication: No Hx Induced Hypertens: No Hx Maternal Gestational Diabet: No Delivery History Hx Blood Disorders: No Adverse Rxn to Tranfusion: No Patient Past Medical History h/o trichomoniasis, right ovarian cyst, depression Social History/Family History Alcohol Use: Denies Use Recreational Drug Use: No (hx: marijuana - 2 yr old ) 2nd Hand Smoke Exposure: Yes Immunizations Hepatitis A: No Hepatitis B: No Tetanus Booster (TDap): Less than 5yrs OB - Admission Exam Physical Exam Vitals: Vital Signs 07/01/21 09:44 Temp 36.6 Pulse 99 Resp 18 Pulse Ox 97 O2 Delivery Room Air HEENT: Moist Membranes Heart: Rhythm Normal Cervical Dilatation: 1cm Effacement: 50% Labs Laboratory Tests Test 07/01/21 09:05 07/01/21 09:30 07/01/21 10:30 Range/Units Urine Color YELLOW Urine Clarity CLEAR Urine pH 7.0 5-9 Urine Specific [place] 1.010 L 1.016-1.022 Urine Protein NEGATIVE NEGATIVE Urine Glucose (UA) NEGATIVE NEGATIVE Urine Ketones NEGATIVE NEGATIVE Urine Nitrite NEGATIVE NEGATIVE Urine Bilirubin NEGATIVE NEGATIVE Urine Urobilinogen 0.2 < = 1.0 MG/DL Urine Leukocyte Esterase TRACE H NEGATIVE Urine RBC (Auto) NEGATIVE NEGATIVE Urine RBC NONE /HPF Urine WBC 2-5 /HPF Urine Squamous Epithelial Cells 5-10 /HPF Urine Crystals NONE /LPF Urine Bacteria TRACE /HPF Urine Casts NONE /LPF Urine Mucus MODERATE H /LPF Urine Culture Indicated NO Amniotic Fluid Ferning Test POSITIVE NEGATIVE White Blood Count 10.8 4.3-11.0 10^3/uL Red Blood Count 4.19 3.80-5.11 10^6/uL Hemoglobin 11.6 11.5-16.0 g/dL Hematocrit 35 35-52 % Mean Corpuscular Volume 84 80-99 fL Mean Corpuscular Hemoglobin 28 25-34 pg Mean Corpuscular Hemoglobin Concent 33 32-36 g/dL Red Cell Distribution Width 15.4 H 10.0-14.5 % Platelet Count 228 130-400 10^3/uL Mean Platelet Volume 11.2 9.0-12.2 fL Immature Granulocyte % (Auto) 1 % Neutrophils (%) (Auto) 74 42-75 % Lymphocytes (%) (Auto) 16 12-44 % Monocytes (%) (Auto) 8 0-12 % Eosinophils (%) (Auto) 1 0-10 % Basophils (%) (Auto) 0 0-10 % Neutrophils # (Auto) 8.1 H 1.8-7.8 10^3/uL Lymphocytes # (Auto) 1.7 1.0-4.0 10^3/uL Monocytes # (Auto) 0.9 0.0-1.0 10^3/uL Eosinophils # (Auto) 0.1 0.0-0.3 10^3/uL Basophils # (Auto) 0.0 0.0-0.1 10^3/uL Immature Granulocyte # (Auto) 0.1 0.0-0.1 10^3/uL OB - Assessment/Plan/Diagnosis Assessment Assessment: rupture of membranes (at 37w2d gestation) Admission Dx 1. IUP at term 37w2d with SROM 2. Breech presentation Admission Status: Inpatient Order (span 2 midnights) Reason for Inpatient Admission: primary LTCS Plan Plan: Section AARON MALAVE MD Jul 01, 2021 13:40
[2021-07-01] MEDS: LACTATED RINGERS 1,000 ML IV PRN ×2 (13:42→14:40)
[2021-07-01] MEDS ORDERED: TERBUTALINE INJ 1 MG/ML (BRETHINE) AMP ONE (13:55)
[2021-07-01] MEDS ORDERED: TERBUTALINE INJ 1 MG/ML (BRETHINE) AMP SC ONE (14:00)
[2021-07-01] MEDS ORDERED: BUPIVACAINE 0.5% 30 ML (SENSORCAINE) VIAL ONE (15:01)
[2021-07-01] MEDS ORDERED: KETOROLAC 30 MG/ML VIAL ONE (15:01)
[2021-07-01] MEDS ORDERED: ONDANSETRON 4 MG/2 ML (SDV) Z0FRAN IV PRN (15:45)
[2021-07-01] MEDS ORDERED: diphenhydrAMINE 50 MG/ML INJ (BENADRYL) IV PRN (15:45)
[2021-07-01] MEDS ORDERED: METOCLOPRAMIDE INJ 10 MG/2 ML (REGLAN) IV PRN (15:45)
[2021-07-01] MEDS ORDERED: NALOXONE 0.4 MG/ML 1 ML (NARCAN) VIAL IV PRN ×3 (15:45→16:00)
--- NOTE | 2021-07-01 15:55 | Discharge Inst-Women's Service ---
Discharge Inst-Women's Serv Depart Medication/Instructions New, Converted or Re-Newed RX: RX on Chart Problems Reviewed?: Yes Consults/Follow Up Additional Follow Up: Yes Orders/Referrals Dr. Yu or Ernestine in 7-10 days Activity Activity: Activity as Tolerated Driving Instructions: No Driving for 1 Week NO SMOKING: NO SMOKING Nothing Inside Vagina: No Douching, No [place], No Tampons Diet Discharge Diet: No Restrictions Symptoms to Report to : Bleeding Excessive, Pain Increased, Fever Over 101 Degrees F, Vaginal Bleeding Increase, Questions/Concerns For Any Problems or Questions: Contact Your Physician Skin/Wound Care Infection Signs and Symptoms: Increased Redness, Foul Odor of Wound, Increased Drainage, Skin Itchy or Has a Rash, Increased Swelling, Temperature Above 101 F Operative Area Clean and Dry: Keep Incision Clean/Dry Stitches/Alek/Dermabond: Dermabond, Care of Stitches Bathing Instructions: VAMSHI Pastor DO Jul 01, 2021 15:54
[2021-07-01] MEDS ORDERED: DCS100C PO (15:56)
[2021-07-01] MEDS ORDERED: ACHD5005 PO (15:56)
[2021-07-01] MEDS ORDERED: IBUP-844 PO (15:56)
[2021-07-01] MEDS ORDERED: MEASLES,MUMPS,RUBELLA 1 EA INJ SC SCH (16:00)
[2021-07-01] MEDS ORDERED: TETANUS,DIPTH,PERTUSS P/F (BOOSTRIX) 0.5 ML VIAL IM SCH (16:00)
[2021-07-01] MEDS ORDERED: ONDANSETRON 4 MG/2 ML (SDV) Z0FRAN IVP PRN (16:00)
[2021-07-01] MEDS: OXYTOCIN PRE-MIX DRIP 500 ML IV SCH (16:30)
[2021-07-01] MEDS: HYDROcodone/APAP 5 MG/325 MG (LORTAB) TAB PO PRN (18:35)
--- NOTE | 2021-07-01 19:00 | OPERATIVE REPORT ---
DATE OF SERVICE: PREOPERATIVE DIAGNOSES: 1. A 21-year-old G3, P1 at 37 weeks and 2 days gestation. 2. Spontaneous rupture of membranes. 3. Pawan breech presentation. POSTOPERATIVE DIAGNOSES: 1. A 21-year-old G3, P1 at 37 weeks and 2 days gestation. 2. Spontaneous rupture of membranes. 3. Pawan breech presentation. PROCEDURE: Primary low transverse section. SURGEON: Geo Madsen DO VOTING MACHINE MECHANIC: Dr. Hector Martinez, who was necessary for manipulation and retraction throughout the procedure. ANESTHESIA: Spinal. ESTIMATED BLOOD LOSS: 250 mL. URINE OUTPUT: 250 mL clear at the end of procedure. FLUIDS: 1200 mL lactated Ringer's solution. FINDINGS: A live female weighing 5 pounds 5 ounces, Apgars of 9 and 9. Grossly normal appearing uterus, bilateral fallopian tubes and ovaries. SPECIMEN SENT: Placenta. INDICATIONS FOR PROCEDURE: This 21-year-old female is a patient, who presented to labor unit with spontaneous rupture of membranes. She was found to be in the pawan breech presentation. She was not in active labor at that time. Therefore, her surgery was planned for the next available elective timing, which was approximately 2:30 that afternoon. In that timeframe, the patient began ciaran and dose of terbutaline was administered and a was bumped up a little bit sooner. In the preoperative area, I reviewed with the patient, risks of the procedure including risk of bleeding, infection, damage to surrounding structures including, but not limited to bowel, bladder, ureter, kidneys, possible need for operation, postoperative complications that may occur, risk from anesthesia, recovery timeframe, possible need for blood transfusion and even . After everything was discussed with the patient in detail, consent was obtained in the preoperative area and the patient was taken to the operating room. OPERATIVE REPORT IN DETAIL: Once in the operating room, spinal analgesia was found to be adequate, placed in supine position with leftward tilt, prepped and draped in normal sterile fashion. Timeout was performed and anesthesia was tested. I then make a Pfannenstiel skin incision with a knife and carried down to underlying fascia using Bovie cautery. The fascial incision extended laterally using Bovie cautery. Superior aspect of fascial incision was then grasped with Marshall clamps, tented up and dissected off the underlying rectus muscles. The inferior aspect of fascial incision was then grasped with Marshall clamps, tented up and dissected off the underlying rectus muscles. Rectus muscles were then dissected down the midline using Navarro scissors, which exposed the peritoneum, which I entered bluntly and extended using blunt traction. Larry ring retractor was placed within the peritoneal incision, which offers excellent lateral sidewall retraction. I then identified the lower uterine segment, which was found to be thinned out and make a low transverse incision to the vesicouterine peritoneum and bluntly dissected off the lower uterine segment, creating a bladder flap. I then continued with my myotomy until membranes were visualized, at which point I extended the uterine incision laterally and superiorly using bandage scissors. Infant was found in the pawan breech presentation. With gentle fundal pressure, the infant's buttocks were delivered through the incision up to the upper abdomen and torso where the legs were delivered as well. I then placed the facing downward and delivered the arms by sweeping them across the chest and then elevate the body and delivered the infant's head through the incision by gentle flexion. The nares and oropharynx were then bulb suctioned. The cord was duly clamped and cut and was taken off the field by Dr. Martinez for further attendance. Cord blood was collected, 3-vessel cord with intact placenta was delivered spontaneously thereafter. IV Pitocin was initiated to facilitate uterine contraction. Uterine fundus confirmed by manual massage. The uterus was then exteriorized and cleared of all endometrial clots and debris. I then proceeded with closing the uterine incision using 0 Vicryl suture in running locked fashion. Second layer of imbricating 0 Monocryl was placed. Excellent hemostasis was noted after doing this. I then placed the uterus back within the pelvis and copiously irrigated the pelvis using normal saline. Once again, there was no active bleeding noted from any of my dissection planes. I placed Interceed antiadhesive over my low transverse incision. I removed the Larry ring retractor and then proceeded with closing the peritoneum using 3-0 Vicryl suture in running fashion. The rectus muscle reapproximated using 3-0 Vicryl suture in interrupted fashion. The fascia was reapproximated using 0 Vicryl suture in running fashion. The subcutaneous tissue was reapproximated using 3-0 plain interrupted subcutaneous stitch and skin reapproximated using 4-0 Monocryl in a running subcuticular. Dermabond was applied to incision and sterile dressing with adhesive white tape. The patient tolerated the procedure well and sent to recovery area in stable condition. Lap and sponge counts were correct at the end of the procedure. Instrument counts correct as well. Two grams of Ancef given preoperatively for infection prophylaxis. Job ID: [id number] DocumentID: [id number] Dictated Date: 07/01/2021 15:53:38 Electronic Imaging System Operator Date: 07/01/2021 18:59:54 Dictated By: GEO MADSEN DO
[2021-07-01] MEDS: KETOROLAC 30 MG/ML VIAL IV SCH (20:55)
[2021-07-01] MEDS: DOCUSATE SODIUM 100 MG (COLACE) CAP PO SCH (20:55)
[2021-07-01] MEDS ORDERED: CATHETER FLUSH 10 ML SYR IV SCH (22:00)
[2021-07-02 00:48] VITALS: BP 115/57
[2021-07-02] MEDS: HYDROcodone/APAP 5 MG/325 MG (LORTAB) TAB PO PRN ×3 (00:48→15:58)
[2021-07-02] MEDS: KETOROLAC 30 MG/ML VIAL IV SCH (03:23)
[2021-07-02 03:30] VITALS: BP 107/56
[2021-07-02 05:47] LABS: BASOPHILS % (AUTO) 0 % (0-10); EOSINOPHILS % (AUTO) 0 % (0-10); HEMATOCRIT 32 % (35-52); HEMOGLOBIN 10.3 g/dL (11.5-16.0); LYMPHOCYTES # (AUTO) 2.2 10^3/uL (1.0-4.0); LYMPHOCYTES % (AUTO) 13 % (12-44); MEAN CORPUSCULAR HEMOGLOBIN 27 pg (25-34); MEAN CORPUSCULAR HGB CONC 33 g/dL (32-36); MEAN CORPUSCULAR VOLUME 84 fL (80-99); MEAN PLATELET VOLUME 10.6 fL (9.0-12.2); MONOCYTES # (AUTO) 1.3 10^3/uL (0.0-1.0); MONOCYTES % (AUTO) 8 % (0-12); NEUTROPHILS # (AUTO) 13.2 10^3/uL (1.8-7.8); NEUTROPHILS % (AUTO) 78 % (42-75); PLATELET COUNT 215 10^3/uL (130-400)
[2021-07-02] MEDS: DOCUSATE SODIUM 100 MG (COLACE) CAP PO SCH ×2 (07:31→20:23)
--- NOTE | 2021-07-02 09:51 | Postpartum Progress Note ---
Note Note Day # 1 Subjective: Patient is without complaints. Ambulating, voiding. Tolerating a regular diet without nausea or vomiting. Normal lochia. Pain is well controlled with oral pain medications. Objective: Physical Exam: General - Alert and oriented, no apparent distress Abdomen - Soft, appropriately tender to palpation, non-distended, fundus firm at umbilicus Extremities - no edema, negative Sancho's bilaterally Assessment: Post- day # 1, status post PLTCS. Recovering well, hemodynamically stable Acute blood loss anemia Plan: Routine care. Encourage breast feeding. Encourage ambulation. Ferrous sulfate supplementation. Plan for discharge tomorrow Vitals - Labs Vital Signs - I&O Vital Signs Date Time Temp Pulse Resp B/P (MAP) Pulse Ox O2 Delivery O2 Flow Rate FiO2 07/02/21 03:30 37.0 61 16 107/56 (73) 98 Room Air 07/02/21 00:48 36.8 78 16 115/57 (76) 96 Room Air 07/01/21 20:54 36.6 85 16 113/59 (77) 96 Room Air 07/01/21 17:45 36.6 86 16 110/55 (73) 97 Room Air 07/01/21 16:30 36.5 71 16 101/57 (72) 98 Room Air 07/01/21 16:17 Room Air 07/01/21 16:16 36.0 18 110/70 (83) 100 Room Air 07/01/21 16:03 Room Air 07/01/21 16:00 36.2 18 105/62 (76) 99 Room Air 07/01/21 15:48 Room Air 07/01/21 15:46 36.2 18 94/63 (73) 100 Room Air 07/01/21 15:32 Room Air 07/01/21 15:31 36.3 18 98/58 (71) 99 Room Air I & O 07/02/21 07:00 Intake Total 4590 ml Output Total 1650 ml Balance 2940 ml Labs Laboratory Tests 07/01/21 10:30: White Blood Count 10.8, Red Blood Count 4.19, Hemoglobin 11.6, Hematocrit 35, Mean Corpuscular Volume 84, Mean Corpuscular Hemoglobin 28, Mean Corpuscular Hemoglobin Concent 33, Red Cell Distribution Width 15.4H, Platelet Count 228, Mean Platelet Volume 11.2, Immature Granulocyte % (Auto) 1, Neutrophils (%) (Auto) 74, Lymphocytes (%) (Auto) 16, Monocytes (%) (Auto) 8, Eosinophils (%) (Auto) 1, Basophils (%) (Auto) 0, Neutrophils # (Auto) 8.1H, Lymphocytes # (Auto) 1.7, Monocytes # (Auto) 0.9, Eosinophils # (Auto) 0.1, Basophils # (Auto) 0.0, Immature Granulocyte # (Auto) 0.1 07/02/21 05:38: White Blood Count 17.0H, Red Blood Count 3.77L, Hemoglobin 10.3L, Hematocrit 32L , Mean Corpuscular Volume 84, Mean Corpuscular Hemoglobin 27, Mean Corpuscular Hemoglobin Concent 33, Red Cell Distribution Width 15.2H, Platelet Count 215, Mean Platelet Volume 10.6, Immature Granulocyte % (Auto) 1, Neutrophils (%) (Auto) 78H, Lymphocytes (%) (Auto) 13, Monocytes (%) (Auto) 8, Eosinophils (%) (Auto) 0, Basophils (%) (Auto) 0, Neutrophils # (Auto) 13.2H, Lymphocytes # (Auto) 2.2, Monocytes # (Auto) 1.3H, Eosinophils # (Auto) 0.0, Basophils # (Auto) 0.0, Immature Granulocyte # (Auto) 0.2H YULIYA STEWARD APRN Jul 02, 2021 09:51
[2021-07-02] MEDS ORDERED: IBUPROFEN 600 MG (MOTRIN) TAB PO SCH ×2 (10:00→18:00)
[2021-07-02] MEDS: OXYTOCIN PRE-MIX DRIP 500 ML IV SCH (10:02)
[2021-07-02] MEDS ORDERED: IBUPROFEN 600 MG (MOTRIN) TAB PO ONE (10:03)
[2021-07-02 10:06] VITALS: BP 109/58
--- NOTE | 2021-07-02 12:47 | Anesthesia-Regional Post-Op ---
Regional Patient Condition Mental Status: Alert, Oriented x3 Circulation: Same as Pre-Op Headache: Absent Sensation: Full Recovery Motor Block: Absent Post Op Complications Complications None Follow Up Care/Instructions Patient Instructions None needed. Anesthesia/Patient Condition Patient is doing well, no complaints, stable vital signs, no apparent adverse anesthesia problems. No complications reported per nursing. EZEQUIEL CEDEÑO CRNA Jul 02, 2021 12:46
[2021-07-02] MEDS: IBUPROFEN 600 MG (MOTRIN) TAB PO SCH ×2 (15:57→22:00)
[2021-07-02 16:00] VITALS: BP 110/55
[2021-07-02 20:30] VITALS: BP 126/60
[2021-07-02 22:05] VITALS: BP 125/86
[2021-07-03] MEDS: HYDROcodone/APAP 5 MG/325 MG (LORTAB) TAB PO PRN ×2 (02:38→10:25)
[2021-07-03 03:55] VITALS: BP 118/71
[2021-07-03] MEDS: IBUPROFEN 600 MG (MOTRIN) TAB PO SCH ×2 (03:55→10:21)
--- NOTE | 2021-07-03 09:29 | Postpartum Progress Note ---
Note Note Day # 2 Subjective: Patient is without complaints. Ambulating, voiding. Tolerating a regular diet without nausea or vomiting. Normal lochia. Pain is well controlled with oral pain medications. Objective: Physical Exam: General - Alert and oriented, no apparent distress Abdomen - Soft, appropriately tender to palpation, non-distended, fundus firm at umbilicus Extremities - no edema, negative Sancho's bilaterally Incision- c/d/i Assessment: POD 2 PLTCS Acute blood loss anemia Plan: Routine care. Encourage breast feeding. Encourage ambulation. Ferrous sulfate supplementation. Plan for discharge today Vitals - Labs Vital Signs - I&O Vital Signs Date Time Temp Pulse Resp B/P (MAP) Pulse Ox O2 Delivery O2 Flow Rate FiO2 07/03/21 03:55 36.4 78 16 118/71 (87) 98 Room Air 07/02/21 22:05 37.0 82 16 125/86 (99) 99 Room Air 07/02/21 20:30 36.6 80 16 126/60 (82) 100 Room Air 07/02/21 16:00 37.0 83 20 110/55 (73) 98 Room Air 07/02/21 10:06 36.7 90 20 109/58 (75) 96 Room Air TENAVAMSHI Gonzalo DO Jul 03, 2021 9:29 am
[2021-07-03 10:19] VITALS: BP 113/56
[2021-07-03] MEDS: DOCUSATE SODIUM 100 MG (COLACE) CAP PO SCH (10:20)
[2021-07-03 15:20] VITALS: BP 113/56
== END 2021-07-03 15:20 | disposition home or self-care (01) | DRG 787 ==
LOC: LDRP 08:55 → WSo 08:55 → LDRP 10:00 → WSo 10:00 → LDRP 16:30
PROVIDERS: ADMIT Obstetrics & Gynecology; ATTEND Obstetrics & Gynecology
PROC: 10D00Z1 Extraction of Products of Conception, Low, Open Approach (ICD-10-PCS; principal; 2021-07-01 14:38)
DX: O64.1XX0 Obstructed labor due to breech presentation, not applicable or unspecified (principal); D62 Acute posthemorrhagic anemia; Z3A.37 37 weeks gestation of pregnancy; Z37.0 Single live birth; O90.81 Anemia of the puerperium; O99.344 Other mental disorders complicating childbirth; F32.9 Major depressive disorder, single episode, unspecified; Z77.22 Contact with and (suspected) exposure to environmental tobacco smoke (acute) (chronic)
CPT/HCPCS: 36415; 81000; 85025; 86850; 86900; 86901; 89060; 94664; 99212

== ENCOUNTER → 2021-11-12 | Outpatient (CLI) | payer MEDICAID ==
[~2021-11-12] MED LIST changes: +ACHD5005 PO; +DOCU-239 PO; +HYDR50TA76 PO
== END ==
LOC: CARD 13:30
PROVIDERS: ATTEND Nurse Practitioner Family
DX: R07.89 Other chest pain (principal); R00.2 Palpitations
CPT/HCPCS: 93225; 93226; 93306; 93351

== ENCOUNTER 2022-07-17 02:12 | Emergency (ER) | payer MEDICAID ==
[2022-07-17] MEDS ORDERED: RX-CYCLOBENZAPRINE 10 MG (FLEXERIL) TAB PPK#3 PO STA (02:34)
[2022-07-17] MEDS ORDERED: RX-NAPROXEN (NAPROSYN) 250 MG TAB PPK#4 PO STA (02:34)
[2022-07-17] MEDS ORDERED: NAPR500T8 PO (02:39)
[2022-07-17] MEDS ORDERED: CYCL10TA25 PO (02:39)
--- NOTE | 2022-07-17 02:39 | ED Upper Extremity ---
General Stated Complaint: LEFT ARM FEELING LIKE IT WILL EXPLODE Source: patient History of Present Illness Date Seen by Provider: Jul 17, 2022 Time Seen by Provider: 02:25 Initial Comments PT ARRIVES VIA POV FROM HOME C/O LEFT ARM PAIN SINCE 1700 YESTERDAY 07/16/22 PAIN BEGAN WHILE SHE WAS SITTING AT WORK, WORKS FOR [employer] NO LIFTING OR UNUSUAL ACTIVITY WORKED FOR 8 HOURS, FROM 1600 TO MIDNIGHT. FINISHED HER SHIFT AND WENT HOME STATES PAIN WAS IN HER FOREARM AND NOW IT IS IN HER WHOLE LEFT ARM UP TO HER LEFT TRAPEZIUS MUSCLE AREA STATES "IT FEELS LIKE IT IS GOING TO EXPLODE" NO PROBLEMS MOVING ARM NO PARESTHESIAS OR MOTOR DEFICITS NO CHEST PAIN NO SHORTNESS OF BREATH NO DIZZINESS NO PALPITATIONS NO SWEATS NO SYNCOPE NO FEVER OR RECENT ILLNESS NO COUGH OR URI SYMPTOMS NO HISTORY OF SIMILAR PT IS RIGHT HANDED HAS NOT TAKEN ANYTHING FOR PAIN AT ANY TIME PT SAW DR. العراقي TODAY FOR THE FIRST TIME--HAS BEEN SEEN AT [facility] FOR DIZZINESS AND "CHEST PAIN" AND LOW BLOOD PRESSURE, AND REFERRED TO DR. العراقي FOR FURTHER EVALUATION PT IS TO HAVE A HOLTER MONITOR PLACED ON Thursday07/21/22 LMP--END OF MAY. PT HAS IUD IN PLACE DOES NOT TAKE ANY MEDICATION FOR ANYTHING DENIES SMOKING, ALCOHOL OR DRUG USE STAES PCP: DR. MENESES AT [facility] SAMPLE CARRIER: DR. العراقي Allergies and Home Medications Allergies Uncoded Allergies: PCN (Allergy, Mild, RASH, 03/01/15) Patient Home Medication List Home Medication List Reviewed: Yes Cyclobenzaprine HCl (Cyclobenzaprine HCl) 10 Mg Tablet, 10 MG PO Q8H PRN for SPASMS Prescribed by: YVETTE STRANGE on 07/17/22 0239 Docusate Sodium (Dok) 100 Mg Capsule, 100 MG PO BID PRN for CONSTIPATION-1ST LINE Prescribed by: VAMSHI MADSEN on 07/01/21 1556 Hydrocodone Bit/Acetaminophen (HYDROcodone/APAP 5 MG/325 MG TAB) 1 Tab Tab, 1-2 EA PO Q6HR PRN for PAIN-MODERATE (5-7) Prescribed by: VAMSHI MADSEN on 07/01/21 1556 Hydroxyzine HCl (Hydroxyzine HCl) 50 Mg Tablet, 50 MG PO DAILY, (Reported) Entered as Reported by: LANEY DOCKERY on 07/01/21 0949 Ibuprofen (Ibu) 600 Mg Tablet, 600 MG PO Q6HR Prescribed by: VAMSHI MADSEN on 07/01/21 1556 Naproxen (Naproxen) 500 Mg Tablet.dr, 500 MG PO BID Prescribed by: YVETTE STRANGE on 07/17/22 0239 Vit No.124/Iron/FA ( Vitamin Tablet) 1 Each Tablet, 1 EACH PO DAILY Prescribed by: JOCELYN MENESES on 06/08/20 1413 Review of Systems Constitutional: no symptoms reported EENTM: no symptoms reported Respiratory: no symptoms reported Cardiovascular: no symptoms reported Gastrointestinal: no symptoms reported Genitourinary: no symptoms reported Musculoskeletal: see HPI Skin: no symptoms reported Psychiatric/Neurological: No Symptoms Reported Past Epfxfbi-Lgucxj-Fexyev Hx Patient Social History Tobacco Use?: No Substance use?: No Alcohol Use?: No Immunizations Up To Date Tetanus Booster (TDap): Less than 5yrs PED Vaccines UTD: Yes Seasonal Allergies Seasonal Allergies: Yes Past Medical History Surgeries: No Respiratory: No Cardiac: No Neurological: Yes Headaches /Migraines Reproductive Disorders: Yes 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 oz. 54.717854ef; 33.67 BMI Method:Stated General Appearance: WD/WN, no apparent distress, other (FLAT AFFECT. DOES NOT APPEAR TO BE IN ANY DISCOMFORT OR DISTRESS. FREELY USING LEFT ARM WITHOUT ANY DIFFICULTY. TAKES LEFT ARM OUT OF A TIGHT SWEATSHIRT SLEEVE WITHOUT DIFFICULTY) HEENT: PERRL/EOMI Neck: non-tender, full range of motion, supple, normal inspection Cardiovascular: regular rate, rhythm, no murmur Respiratory: chest non-tender, normal breath sounds Gastrointestinal: non tender, soft Back: no CVA tenderness, no vertebral tenderness, other (LEFT TRAPEZIUS MUSCLE SPASMS AND TENDERNESS--PALPATION REPRODUCES PAIN IN THE AREA. ) Shoulder: normal inspection, non-tender, no evidence of injury, normal ROM Elbow/Forearm: normal inspection, non-tender, no evidence of injury, normal ROM Wrist: Yes normal inspection, Yes non-tender, Yes no evidence of injury, Yes normal ROM Hand: normal inspection, non-tender, no evidence of injury, normal ROM Neurologic/Tendon: normal sensation, normal motor functions, normal tendon functions Neurologic/Psychiatric: head of strategy II-XII nml as tested, no motor/sensory deficits, alert, normal mood/affect, oriented x 3 Skin: normal color, warm/dry; No rash Progress/Results/Core Measures Results/Orders My Orders Orders - YVETTE STRANGE DO Rx-Cyclobenzaprine Tablet (Rx-Flexeril T (07/17/22 02:34) Rx-Naproxen (Rx-Naprosyn) (07/17/22 02:34) Departure Impression Primary Impression: Left arm pain Additional Impression: LEFT TRAPEZIUS MUSCLE SPASMS AND PAIN Disposition: 01 HOME, SELF-CARE Condition: Stable Departure-Patient Inst. Decision time for Depature: 02:37 Referrals: JOCELYN MENESES MD (PCP/Family) Primary Care Physician SAAD العراقي MD FACP FAC CCDS Patient Instructions: Muscle Spasm ED, Muscle Strain (DC) Add. Discharge Instructions: MOIST HEAT TO AREA AT 20 MINUTE INTERVALS NO LIFTING OVER 5 LBS WITH LEFT ARM FOLLOW UP WITH [facility] OR DR العراقي THIS WEEK FOR FURTHER CARE Scripts Naproxen (Naproxen) 500 Mg Tablet. 500 MG PO BID, #20 TAB Prov: YVETTE STRANGE DO 07/17/22 Cyclobenzaprine HCl (Cyclobenzaprine HCl) 10 Mg Tablet 10 MG PO Q8H PRN for SPASMS, #15 TAB 0 Refills Prov: YVETTE STRANGE DO 07/17/22 YVETTE STRANGE DO Jul 17, 2022 02:39
[2022-07-17 02:50] VITALS: BP 129/76
== END 2022-07-17 02:50 | disposition home or self-care (01) ==
LOC: EDUNIT# 02:12 → ER 02:15
DX: M62.838 Other muscle spasm (principal); Z28.310 Unvaccinated for COVID-19
CPT/HCPCS: 99283

== ENCOUNTER → 2022-07-23 | Outpatient (CLI) | payer MEDICAID ==
[~2022-07-23] MED LIST changes: +CYCL10TA25 PO; +NAPR500T8 PO
== END ==
LOC: CARD 07:49
PROVIDERS: ATTEND Internal Medicine Cardiovascular Disease
DX: R42 Dizziness and giddiness (principal)

== ENCOUNTER 2022-08-04 19:09 | Emergency (ER) | payer MEDICAID ==
[2022-08-04] MEDS ORDERED: ASPIRIN 81 MG CHEW (CHILDREN'S ASA) PO ONE (19:30)
[2022-08-04 19:36] LABS: BASOPHILS # (AUTO) 0.1 10^3/uL (0.0-0.1); BASOPHILS % (AUTO) 1 % (0-10); EOSINOPHILS # (AUTO) 0.1 10^3/uL (0.0-0.3); EOSINOPHILS % (AUTO) 1 % (0-10); HEMATOCRIT 40 % (35-52); HEMOGLOBIN 13.2 g/dL (11.5-16.0); LYMPHOCYTES # (AUTO) 3.5 10^3/uL (1.0-4.0); LYMPHOCYTES % (AUTO) 29 % (12-44); MEAN CORPUSCULAR HEMOGLOBIN 28 pg (25-34); MEAN CORPUSCULAR HGB CONC 33 g/dL (32-36); MEAN CORPUSCULAR VOLUME 84 fL (80-99); MEAN PLATELET VOLUME 10.8 fL (9.0-12.2); MONOCYTES # (AUTO) 0.6 10^3/uL (0.0-1.0); MONOCYTES % (AUTO) 5 % (0-12); NEUTROPHILS # (AUTO) 7.7 10^3/uL (1.8-7.8); NEUTROPHILS % (AUTO) 64 % (42-75); PLATELET COUNT 258 10^3/uL (130-400); WHITE BLOOD COUNT 11.9 10^3/uL (4.3-11.0)
[2022-08-04] MEDS ORDERED: KETOROLAC 30 MG/ML VIAL IVP STA (19:38)
[2022-08-04] MEDS ORDERED: NS IV 1000 ML 1,000 ML IV STA (19:38)
--- NOTE | 2022-08-04 19:45 | ED Chest Pain ---
General Chief Complaint: Chest Pain Stated Complaint: CHEST PAIN Nursing Triage Note: TO ED VIA POV AND AMBULATORY TO ROOM 2 WITH C/O LEFT SIDE CP RADIATING TO LEFT NECK APPROX STARTING 1814 TONIGHT. RECENTLY SEEN BY TOE STRIPPER DR. SCHNEIDER FOR LOW BP AND DIZZINESS AND WAS WEARING HOLTER MONITOR UNTIL LAST NIGHT, PT STATES SHE REMOVED IT WITH DR AIMEE BRAND AFTER STARTED TO GET BLISTERS (THIS WAS REMOVED 2 DAYS EARLY THAN WHEN SHOULD HAVE BEEN PER PT). DENIES DIZZINESS OR SOA AT THIS TIME. PT WAS SITTING WHEN CP STARTED TODAY. AT WORST CP WAS 8/10 AND CURRENTLY JUST FEELS "PRESSURE". Source: patient Exam Limitations: no limitations History of Present Illness Date Seen by Provider: Aug 04, 2022 Time Seen by Provider: 19:27 Initial Comments Here with report of left-sided chest pain that goes to the left side of the neck going on for approximately an hour and a half. Has had previous episodes similar and currently is undergoing Holter monitor evaluation. She was doing a 14-day Holter monitor test but had to take it off at 13 days due to skin irritation. That was yesterday. She is due to follow-up with Dr. Schneider. Previous Holter monitor and echo cardiogram and echo stress test and October of this year did not reveal any significant abnormalities. They are doing further testing though. Patient freely admits that sometimes she gets anxious and she will have exacerbation of chest pain. She is also undergoing evaluation for left arm pain and has recently been on muscle relaxers for that. States that this may be related to that. Denies breathing problems, fever, chills, nausea, vomiting or diarrhea. She has not had anything for pain today. Timing/Duration: 1-3 hours, changing over time, other (Better now) Severity/Quality: sharp Location: central Radiation: neck (Left-sided) Prior CP/Workup: echocardiography, stress test Modifying Factors: improves with rest ASA po VISITING TEACHER: No NTG SL VISITING TEACHER: No Associated Symptoms: No abdominal pain, No back pain, No diaphoresis, No fever/chills, No nausea/vomiting, No shortness of breath, No weakness Allergies and Home Medications Allergies Uncoded Allergies: PCN (Allergy, Mild, RASH, 03/01/15) Patient Home Medication List Home Medication List Reviewed: Yes Cyclobenzaprine HCl (Cyclobenzaprine HCl) 10 Mg Tablet, 10 MG PO Q8H PRN for SPASMS Prescribed by: YVETTE STRANGE on 07/17/22238 Docusate Sodium (Dok) 100 Mg Capsule, 100 MG PO BID PRN for CONSTIPATION-1ST LINE Prescribed by: VAMSHI MADSEN on 07/01/21 155 Hydrocodone Bit/Acetaminophen (HYDROcodone/APAP 5 MG/325 MG TAB) 1 Tab Tab, 1-2 EA PO Q6HR PRN for PAIN-MODERATE (5-7) Prescribed by: VAMSHI MADSEN on 07/01/21 155 Hydroxyzine HCl (Hydroxyzine HCl) 50 Mg Tablet, 50 MG PO DAILY, (Reported) Entered as Reported by: LANEY DOCKERY on 07/01/21 0949 Ibuprofen (Ibu) 600 Mg Tablet, 600 MG PO Q6HR Prescribed by: VAMSHI MADSEN on 07/01/21 155 Naproxen (Naproxen) 500 Mg Tablet.dr, 500 MG PO BID Prescribed by: YVETTE STRANGE on 07/17/22238 Vit No.124/Iron/FA ( Vitamin Tablet) 1 Each Tablet, 1 EACH PO DAILY Prescribed by: JOCELYN MENESES on 06/08/20 1413 Review of Systems Review of Systems Constitutional: see HPI; No chills, No fever EENTM: No Nose Congestion, No Throat Pain Respiratory: Denies Shortness of Air, Denies SOA at Rest Cardiovascular: Chest Pain; Denies Edema, Denies Irregular Heart Rate, Denies Lightheadedness Gastrointestinal: Denies Diarrhea, Denies Nausea, Denies Vomiting Musculoskeletal: muscle pain, neck pain Skin: No change in color; rash (Left upper anterior chest wall where adhesive patch was placed for Holter monitor) Psychiatric/Neurological: Anxiety; Denies Paresthesia, Denies Weakness All Other Systems Reviewed Negative Unless Noted: Yes Past Ndiqcpi-Jsaujv-Apwgai Hx Patient Social History Tobacco Use?: Yes Smoking Status: Current Everyday Smoker Use of E-Cig and/or Vaping dev: Yes E-Cig or Vaping type used: Nicotine Substance use?: No Alcohol Use?: No Immunizations Up To Date Tetanus Booster (TDap): Less than 5yrs PED Vaccines UTD: Yes Influenza Vaccine Up-to-Date: No; Not Current First/Initial COVID19 Vaccinat: DECEMBER 2021 COVID19 Vaccine Battery Service Technician: MODERNA Seasonal Allergies Seasonal Allergies: Yes Past Medical History Surgeries: No Respiratory: No Cardiac: No Neurological: Yes Headaches /Migraines Last Menstrual Period: Jul 28, 2022 Reproductive Disorders: Yes 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 Sexually Transmitted Disease: Yes (CHLAMYDIA AND TRICHOMONAS) Genitourinary: No Gastrointestinal: Yes Gastroesophageal Reflux, Hiatal Hernia Musculoskeletal: No Endocrine: No HEENT: No Cancer: No Psychosocial: Yes Anxiety, Depression Integumentary: No Blood Disorders: No Adverse Reaction/Blood Tranf: No Family Medical History Reviewed Nursing Family Hx FH: ovarian cancer 19 MOTHER Guillain-[place] syndrome 19 MOTHER No Pertinent Family Hx SOCIAL HISTORY: -ETOH--DENIES USE -DRUGS--+ THC USE -SMOKES 1/2 PPD Physical Exam Vital Signs Vital Signs - First Documented Capillary Refill : Less Than 3 Seconds Height, Weight, BMI Height: 5'5" Weight: 120lbs. oz. 54.950126og; 33.67 BMI Method:Stated General Appearance: No Apparent Distress, WD/WN HEENT: PERRL/EOMI, Pharynx Normal Neck: Non Tender, Supple Respiratory: Lungs Clear, Normal Breath Sounds Cardiovascular: Regular Rate, Rhythm, No Murmur Gastrointestinal: Non Tender, Soft Extremity: Normal Range of Motion, Non Tender Neurologic/Psychiatric: Alert, Oriented x3 Skin: Normal Color, Warm/Dry Progress/Results/Core Measures Results/Orders Lab Results Laboratory Tests Test 08/04/22 19:30 Range/Units White Blood Count 11.9 H 4.3-11.0 10^3/uL Red Blood Count 4.76 3.80-5.11 10^6/uL Hemoglobin 13.2 11.5-16.0 g/dL Hematocrit 40 35-52 % Mean Corpuscular Volume 84 80-99 fL Mean Corpuscular Hemoglobin 28 25-34 pg Mean Corpuscular Hemoglobin Concent 33 32-36 g/dL Red Cell Distribution Width 14.6 H 10.0-14.5 % Platelet Count 258 130-400 10^3/uL Mean Platelet Volume 10.8 9.0-12.2 fL Immature Granulocyte % (Auto) 0 % Neutrophils (%) (Auto) 64 42-75 % Lymphocytes (%) (Auto) 29 12-44 % Monocytes (%) (Auto) 5 0-12 % Eosinophils (%) (Auto) 1 0-10 % Basophils (%) (Auto) 1 0-10 % Neutrophils # (Auto) 7.7 1.8-7.8 10^3/uL Lymphocytes # (Auto) 3.5 1.0-4.0 10^3/uL Monocytes # (Auto) 0.6 0.0-1.0 10^3/uL Eosinophils # (Auto) 0.1 0.0-0.3 10^3/uL Basophils # (Auto) 0.1 0.0-0.1 10^3/uL Immature Granulocyte # (Auto) 0.0 0.0-0.1 10^3/uL Prothrombin Time 13.0 12.2-14.7 SEC INR Comment 0.9 0.8-1.4 Activated Partial Thromboplast Time 29 24-35 SEC Sodium Level 141 135-145 MMOL/L Potassium Level 3.4 L 3.6-5.0 MMOL/L Chloride Level 107 98-107 MMOL/L Carbon Dioxide Level 23 21-32 MMOL/L Anion Gap 11 5-14 MMOL/L Blood Urea Nitrogen 9 7-18 MG/DL Creatinine 0.73 0.60-1.30 MG/DL Estimat Glomerular Filtration Rate 120 BUN/Creatinine Ratio 12 Glucose Level 108 H 70-105 MG/DL Calcium Level 9.3 8.5-10.1 MG/DL Corrected Calcium 9.1 8.5-10.1 MG/DL Magnesium Level 1.9 1.6-2.4 MG/DL Total Bilirubin 0.2 0.1-1.0 MG/DL Aspartate Amino Transf (AST/SGOT) 13 5-34 U/L Alanine Aminotransferase (ALT/SGPT) 10 0-55 U/L Alkaline Phosphatase 62 40-136 U/L Creatine Kinase MB 1.0 <6.6 NG/ML Myoglobin 27.2 10.0-92.0 NG/ML Troponin I < 0.028 <0.028 NG/ML B-Type Natriuretic Peptide < 10.0 <100.0 PG/ML Total Protein 7.2 6.4-8.2 GM/DL Albumin 4.2 3.2-4.5 GM/DL Amylase Level 73 25-125 U/L Lipase 25 8-78 U/L Serum Test, Qualitative NEGATIVE NEGATIVE My Orders Orders - RAÚL YUN MD Ns Iv 1000 Ml (Sodium Chloride 0.9%) (08/04/22 19:38) Ketorolac Injection (Toradol Injection) (08/04/22 19:38) Medications Given in ED Current Medications Medications Dose Ordered Sig/Liz Route Start Time Stop Time Status Last Admin Dose Admin Aspirin 324 mg ONCE ONCE PO 08/04/22 19:30 08/04/22 19:31 DC 08/04/22 19:55 324 MG Vital Signs/I&O 08/04/22 08/04/22 19:15 19:15 Temp 36.6 Pulse 95 Resp 16 B/P (MAP) 121/76 (91) Pulse Ox 97 O2 Delivery Room Air Room Air Blood Pressure Mean: 91 Progress Progress Note : Progress Note Seen and evaluated. IV, labs, EKG and chest x-ray ordered. ASA for chest pain protocol. We will give Toradol 30 mg IV as well for musculoskeletal pain. Monitor patient. 2110: Overall doing better. Laboratory evaluation negative. No acute findings currently. She is currently in process of evaluation with Dr Schneider. She does have Holter monitor pending results. I will have her follow- up with Dr Schneider. She does state that she takes reflux medicine and I have instructed her to continue that. She states that she takes it intermittently but she will take it over the next several days just to minimize competing concerns. Discharged home with return precautions. Patient verbalized understanding of instructions and agreement with plan. Initial ECG Impression Date: Aug 04, 2022 Initial ECG Impression Time: 19:24 Initial ECG Rate: 76 Initial ECG Rhythm: Normal Sinus Comment Sinus rhythm with left atrial abnormality and possible right ventricular conduction delay. Normal axis. No evidence of ST elevation NE. Similar to previous of 12/16/2020. Interpreted by me. Diagnostic Imaging Diagonstic Imaging: Xray Plain Films/CT/US/NM/MRI: chest Comments 2 view chest x-ray shows no acute process. See radiology report for details. Departure Impression Primary Impression: Chest pain Qualified Codes: R07.9 - Chest pain, unspecified Disposition: HOME, SELF-CARE Condition: Improved Departure-Patient Inst. Decision time for Depature: 21:12 Referrals: JOCELYN MENESES MD (PCP/Family) Primary Care Physician SAAD SCHNEIDER MD FACP FAC CCDS Patient Instructions: Chest Pain (DC) Add. Discharge Instructions: All discharge instructions reviewed with patient and/or family. Voiced understanding. Continue home medications as previously prescribed. You may take Tylenol/acetaminophen 1000 mg every 6-8 hours as needed for pain. You should restart and continue your antacid medication. Follow-up with Dr Schneider in the next few days for recheck and further evaluation. Call his office for appointment. Follow-up with your doctor this week as well. Return for worse pain, fever, vomiting, weakness, breathing problems or other concerns as needed. RAÚL YUN MD Aug 04, 2022 19:45
--- NOTE | 2022-08-04 19:58 | Diagnostic Imaging Report ---
EXAMINATION: Chest 1 view HISTORY: Chest pain. COMPARISON: 11/25/2020. FINDINGS: The lung volumes are normal. No focal consolidation is seen. No large pleural effusion or pneumothorax is seen. The cardiomediastinal silhouette is normal in size and contour. No acute osseous abnormality is seen. IMPRESSION: 1. No acute pleuroparenchymal process. Dictated by: Dictated on workstation # [id number]
[2022-08-04 20:01] LABS: ALBUMIN 4.2 GM/DL (3.2-4.5); BILIRUBIN,TOTAL 0.2 MG/DL (0.1-1.0); CALCIUM 9.3 MG/DL (8.5-10.1); CREATININE SERUM 0.73 MG/DL (0.60-1.30); MAGNESIUM 1.9 MG/DL (1.6-2.4); POTASSIUM 3.4 MMOL/L (3.6-5.0); TOTAL PROTEIN 7.2 GM/DL (6.4-8.2)
[2022-08-04 20:02] LABS: INR 0.9 (0.8-1.4)
[2022-08-04 21:26] VITALS: BP 104/68
== END 2022-08-04 21:28 | disposition home or self-care (01) ==
LOC: EDUNIT# 19:09 → ER 19:10
DX: R07.89 Other chest pain (principal); F17.200 Nicotine dependence, unspecified, uncomplicated; Z28.311 Partially vaccinated for COVID-19
CPT/HCPCS: 36415; 71045; 80053; 82150; 82553; 83690; 83735; 83874; 83880; 84484; 84703; 85025; 85610; 85730; 93005; 93041

== ENCOUNTER 2022-08-07 00:23 | Emergency (ER) | payer MEDICAID ==
[~2022-08-07] VITALS: Ht 165 cm; Wt 79.0 kg
[2022-08-07 02:01] LABS: BASOPHILS # (AUTO) 0.1 10^3/uL (0.0-0.1); BASOPHILS % (AUTO) 1 % (0-10); EOSINOPHILS # (AUTO) 0.1 10^3/uL (0.0-0.3); EOSINOPHILS % (AUTO) 1 % (0-10); HEMATOCRIT 41 % (35-52); HEMOGLOBIN 13.6 g/dL (11.5-16.0); LYMPHOCYTES # (AUTO) 3.8 10^3/uL (1.0-4.0); LYMPHOCYTES % (AUTO) 36 % (12-44); MEAN CORPUSCULAR HEMOGLOBIN 28 pg (25-34); MEAN CORPUSCULAR HGB CONC 33 g/dL (32-36); MEAN CORPUSCULAR VOLUME 83 fL (80-99); MEAN PLATELET VOLUME 10.9 fL (9.0-12.2); MONOCYTES # (AUTO) 0.7 10^3/uL (0.0-1.0); MONOCYTES % (AUTO) 7 % (0-12); NEUTROPHILS # (AUTO) 5.8 10^3/uL (1.8-7.8); NEUTROPHILS % (AUTO) 55 % (42-75); PLATELET COUNT 291 10^3/uL (130-400); WHITE BLOOD COUNT 10.5 10^3/uL (4.3-11.0)
--- NOTE | 2022-08-07 02:01 | ED GI ---
General Chief Complaint: Rect Problems Stated Complaint: ABD PAIN, BLOOD IN STOOL Nursing Triage Note: Pt presents with c/o rectal bleeding. She reports severe abdominal pain at approx 1600 today followed by diarrhea, she doesn't report noticing blood in stool at that time, but states she didn't really look. She was in ER with daughter and went home, she reports passing bright red blood right after gettting home. Denies pain at this time. Source of Information: Patient Exam Limitations: No Limitations (KEILA ALVARES) History of Present Illness Date Seen by Provider: Aug 07, 2022 Time Seen by Provider: 01:00 Initial Comments This is a 22 year old female who presents with reported rectal bleeding. Patient states she had four episodes of diarrhea throughout the day on 08/06 associated with abdominal pain. Patient states late in the evening of 08/06 she went to the bathroom and noticed bright red blood in the toilet. She states she confirmed it was not vaginal or urethral bleeding. Patient states she is unsure if this is the first time she has had rectal bleeding/hematochezia. Patient states she is currently not in any pain. Patient denies any rectal trauma. Patient states she consumes "bloody steak" but denies other possible exposure to infectious diarrheal etiological agents. Timing/Duration: Resolved Prior to Arrival Severity/Quality: Moderate Location: Generalized Abdomen Radiation: No Radiation Activities at Onset: None Associated Symptoms: Denies Symptoms (KEILA ALVARES) Allergies and Home Medications Allergies Uncoded Allergies: PCN (Allergy, Mild, RASH, 03/01/15) Patient Home Medication List Home Medication List Reviewed: Yes (KEILA ALVARES) Cyclobenzaprine HCl (Cyclobenzaprine HCl) 10 Mg Tablet, 10 MG PO Q8H PRN for SPASMS Prescribed by: YVETTE STRANGE on 07/17/22 0239 Docusate Sodium (Dok) 100 Mg Capsule, 100 MG PO BID PRN for CONSTIPATION-1ST LINE Prescribed by: VAMSHI MADSEN on 07/01/21 155 Hydrocodone Bit/Acetaminophen (HYDROcodone/APAP 5 MG/325 MG TAB) 1 Tab Tab, 1-2 EA PO Q6HR PRN for PAIN-MODERATE (5-7) Prescribed by: VAMSHI MADSEN on 07/01/21 155 Hydroxyzine HCl (Hydroxyzine HCl) 50 Mg Tablet, 50 MG PO DAILY, (Reported) Entered as Reported by: LANEY DOCKERY on 07/01/21 0949 Hyoscyamine Sulfate (Levsin-Sl) 0.125 Mg Tab.subl, 0.125 MG SL Q4H Prescribed by: PRAKASH BECERRIL on 08/07/22 0333 Ibuprofen (Ibu) 600 Mg Tablet, 600 MG PO Q6HR Prescribed by: VAMSHI MADSEN on 07/01/21 1556 Naproxen (Naproxen) 500 Mg Tablet.dr, 500 MG PO BID Prescribed by: YVETTE STRANGE on 07/17/22 0239 Vit No.124/Iron/FA ( Vitamin Tablet) 1 Each Tablet, 1 EACH PO DAILY Prescribed by: JOCELYN MENESES on 06/08/20 1413 Review of Systems Review of Systems Constitutional: no symptoms reported EENTM: No Symptoms Reported Respiratory: No Symptoms Reported Cardiovascular: No Symptoms Reported Gastrointestinal: Abdominal Pain, Rectal Bleeding Genitourinary: No Symptoms Reported Musculoskeletal: no symptoms reported Skin: no symptoms reported Psychiatric/Neurological: No Symptoms Reported Endocrine: No Symptoms Reported Hematologic/Lymphatic: No Symptoms Reported (KEILA ALVARES) All Other Systems Reviewed Negative Unless Noted: Yes (KEILA ALVARES) Past Xndvfor-Ljckii-Eepsxr Hx Patient Social History Tobacco Use?: No Use of E-Cig and/or Vaping dev: Yes E-Cig or Vaping type used: Nicotine Substance use?: No Alcohol Use?: No (KEILA ALVARES) Immunizations Up To Date Tetanus Booster (TDap): Less than 5yrs PED Vaccines UTD: Yes First/Initial COVID19 Vaccinat: DECEMBER 2021 Second COVID19 Vaccination Tejas: DECEMBER 2021 Third COVID19 Vaccination Date: DECEMBER 2021 (KEILA ALVARES) Seasonal Allergies Seasonal Allergies: Yes (KEILA ALVARES) Past Medical History Surgeries: No Respiratory: No Cardiac: No Neurological: Yes Headaches /Migraines Last Menstrual Period: Jul 26, 2022 Reproductive Disorders: Yes Female Reproductive Disorders: 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 Sexually Transmitted Disease: Yes (CHLAMYDIA AND TRICHOMONAS) Genitourinary: No Gastrointestinal: Yes Gastroesophageal Reflux, Hiatal Hernia Musculoskeletal: No Endocrine: No HEENT: No Cancer: No Psychosocial: Yes Anxiety, Depression Integumentary: No Blood Disorders: No Adverse Reaction/Blood Tranf: No (KEILA ALVARES) Family Medical History FH: ovarian cancer 19 MOTHER Guillain-[place] syndrome 19 MOTHER No Pertinent Family Hx SOCIAL HISTORY: -ETOH--DENIES USE -DRUGS--+ THC USE -SMOKES 1/2 PPD (KEILA ALVARES) Physical Exam Vital Signs Vital Signs - First Documented 08/07/22 08/07/22 00:30 03:43 Temp 36.6 Pulse 86 Resp 16 B/P (MAP) 113/82 (92) Pulse Ox 98 (PRAKASH ORNELAS MD) Vital Signs Capillary Refill : Less Than 3 Seconds (KEILA ALVARES) Height/Weight/BMI Height: 5'5" Weight: 120lbs. oz. 54.497655kr; 29.00 BMI Method:Stated General Appearance: WD/WN, no apparent distress Respiratory: lungs clear, normal breath sounds, no respiratory distress, no accessory muscle use Cardiovascular: regular rate, rhythm Gastrointestinal: normal bowel sounds, soft, other (mild suprapubic discomfort/fullness with palpation) Rectal: normal exam, normal rectal tone, heme negative stool; No hemorrhoids, No mass Genital/Rectal: normal rectal exam, heme negative stool, normal rectal tone Neurologic/Psychiatric: alert, normal mood/affect, oriented x 3 Skin: normal color, warm/dry Exam Comments This exam was performed by Dr. Ornelas and dictated to me (KEILA ALVARES) Progress/Results/Core Measures Results/Orders Lab Results Laboratory Tests Test 08/07/22 01:50 08/07/22 02:52 Range/Units White Blood Count 10.5 4.3-11.0 10^3/uL Red Blood Count 4.95 3.80-5.11 10^6/uL Hemoglobin 13.6 11.5-16.0 g/dL Hematocrit 41 35-52 % Mean Corpuscular Volume 83 80-99 fL Mean Corpuscular Hemoglobin 28 25-34 pg Mean Corpuscular Hemoglobin Concent 33 32-36 g/dL Red Cell Distribution Width 14.8 H 10.0-14.5 % Platelet Count 291 130-400 10^3/uL Mean Platelet Volume 10.9 9.0-12.2 fL Immature Granulocyte % (Auto) 0 % Neutrophils (%) (Auto) 55 42-75 % Lymphocytes (%) (Auto) 36 12-44 % Monocytes (%) (Auto) 7 0-12 % Eosinophils (%) (Auto) 1 0-10 % Basophils (%) (Auto) 1 0-10 % Neutrophils # (Auto) 5.8 1.8-7.8 10^3/uL Lymphocytes # (Auto) 3.8 1.0-4.0 10^3/uL Monocytes # (Auto) 0.7 0.0-1.0 10^3/uL Eosinophils # (Auto) 0.1 0.0-0.3 10^3/uL Basophils # (Auto) 0.1 0.0-0.1 10^3/uL Immature Granulocyte # (Auto) 0.0 0.0-0.1 10^3/uL Prothrombin Time 13.8 12.2-14.7 SEC INR Comment 1.0 0.8-1.4 Activated Partial Thromboplast Time 31 24-35 SEC Sodium Level 139 135-145 MMOL/L Potassium Level 4.1 3.6-5.0 MMOL/L Chloride Level 108 H 98-107 MMOL/L Carbon Dioxide Level 23 21-32 MMOL/L Anion Gap 8 5-14 MMOL/L Blood Urea Nitrogen 8 7-18 MG/DL Creatinine 0.70 0.60-1.30 MG/DL Estimat Glomerular Filtration Rate 126 BUN/Creatinine Ratio 11 Glucose Level 95 70-105 MG/DL Calcium Level 9.5 8.5-10.1 MG/DL Corrected Calcium 9.3 8.5-10.1 MG/DL Total Bilirubin 0.2 0.1-1.0 MG/DL Aspartate Amino Transf (AST/SGOT) 15 5-34 U/L Alanine Aminotransferase (ALT/SGPT) 10 0-55 U/L Alkaline Phosphatase 63 40-136 U/L C-Reactive Protein High Sensitivity 0.15 0.00-0.50 MG/DL Total Protein 7.4 6.4-8.2 GM/DL Albumin 4.2 3.2-4.5 GM/DL Lipase 21 8-78 U/L Serum Test, Qualitative NEGATIVE NEGATIVE Urine Color YELLOW Urine Clarity CLEAR Urine pH 6.0 5-9 Urine Specific Esko 1.010 L 1.016-1.022 Urine Protein NEGATIVE NEGATIVE Urine Glucose (UA) NEGATIVE NEGATIVE Urine Ketones NEGATIVE NEGATIVE Urine Nitrite NEGATIVE NEGATIVE Urine Bilirubin NEGATIVE NEGATIVE Urine Urobilinogen 0.2 < = 1.0 MG/DL Urine Leukocyte Esterase TRACE H NEGATIVE Urine RBC (Auto) NEGATIVE NEGATIVE Urine RBC NONE /HPF Urine WBC 0-2 /HPF Urine Squamous Epithelial Cells 2-5 /HPF Urine Crystals NONE /LPF Urine Bacteria TRACE /HPF Urine Casts NONE /LPF Urine Mucus NEGATIVE /LPF Urine Culture Indicated NO (PRAKASH ORNELAS MD) My Orders Orders - PRAKASH ORNELAS MD Ed Iv/Invasive Line Start (08/07/22 00:52) Cbc With Automated Diff (08/07/22 00:52) Comprehensive Metabolic Panel (08/07/22 00:52) Hs C Reactive Protein (08/07/22 00:52) Hcg,Qualitative Serum (08/07/22 00:52) Lipase (08/07/22 00:52) Protime With Inr (08/07/22 00:52) Partial Thromboplastin Time (08/07/22 00:52) Ua Culture If Indicated (08/07/22 00:52) Ed Iv/Invasive Line Start (08/07/22 00:52) Fecal Occult Bedside (08/07/22 00:52) Stool Culture (08/07/22 00:52) Fecal Wbc (08/07/22 00:52) C Difficile Ag + Toxin A/B. (08/07/22 02:54) (PRAKASH ORNELAS MD) Vital Signs/I&O 08/07/22 08/07/22 00:30 03:43 Temp 36.6 Pulse 86 86 Resp 16 18 B/P (MAP) 113/82 (92) 118/72 Pulse Ox 98 (PRAKASH ORNELAS MD) Blood Pressure Mean: 92 Departure Impression Primary Impression: Rectal bleeding Additional Impression: Abdominal cramping Disposition: 01 HOME, SELF-CARE Condition: Improved Departure-Patient Inst. Decision time for Depature: 03:31 (PRAKASH ORNELAS MD) Referrals: JOCELYN MENESES MD (PCP/Family) Primary Care Physician Patient Instructions: Bloody Stools, Adult ED Add. Discharge Instructions: Consume primarily a clear liquid diet for the next 24 hours. Then gradually adv ance your diet with small quantities of bland food as tolerated. You may take Tylenol (acetaminophen) up to 1000 mg every 6 hours as needed for pain. Avoid use of NSAID medications such as ibuprofen or naproxen. You may use Levsin (hyoscyamine) as prescribed for bowel cramping. Follow-up with your primary care provider soon as possible. Please call this morning to arrange an appointment time. Follow-up on your stool culture results with your doctor. Results should be available early next week. You should also seek referral to a surgeon for colonoscopy. Return to the emergency room if you develop worsening symptoms including fever, worsening bleeding, shortness of breath, lightheadedness, escalating pain, etc. All discharge instructions reviewed with patient and/or family. Voiced understanding. Scripts Hyoscyamine Sulfate (Levsin-Sl) 0.125 Mg Tab.subl 0.125 MG SL Q4H, #10 TAB 0 Refills Prov: PRAKASH ORNELAS MD 08/07/22 Medical Student Attestation and Attending Note: I have personally interviewed and examined this patient along with Chiara Alvares, MS 4. I have reviewed student documentation including history, physical, and assessments. I agree with the documentation except where otherwise noted. My exam was recorded by EMS for as above. Hemoccult test was negative. There was no active bleeding noted during exam. However, patient did have a watery bowel movement with appearance of fresh red blood grossly indicative of hematochezia. She has had cramping with these bowel movements. Levsin was prescribed for the cramping. Stool cultures were obtained. Patient was otherwise stable and did not require admission. See discharge instructions for further discussion. (PRAKASH ORNELAS MD) Copy Copies To 1: JOCELYN MENESES MD, MIKAELA Aug 07, 2022 02:01 PRAKASH ORNELAS MD Aug 07, 2022 03:34
[2022-08-07 02:12] LABS: PROTHROMBIN TIME PATIENT 13.8 SEC (12.2-14.7)
[2022-08-07 02:16] LABS: ALBUMIN 4.2 GM/DL (3.2-4.5)
[2022-08-07 02:17] LABS: POTASSIUM 4.1 MMOL/L (3.6-5.0)
[2022-08-07 02:18] LABS: CALCIUM 9.5 MG/DL (8.5-10.1)
[2022-08-07 02:19] LABS: TOTAL PROTEIN 7.4 GM/DL (6.4-8.2)
[2022-08-07 02:21] LABS: BILIRUBIN,TOTAL 0.2 MG/DL (0.1-1.0)
[2022-08-07 02:23] LABS: CREATININE SERUM 0.7 MG/DL (0.60-1.30)
[2022-08-07 03:01] LABS: BILIRUBIN,URINE NEGATIVE (NEGATIVE); CLARITY,URINE CLEAR; COLOR,URINE YELLOW; GLUCOSE, URINE (UA) NEGATIVE (NEGATIVE); KETONES,URINE NEGATIVE (NEGATIVE); LEUKOCYTE ESTERASE ,URINE TRACE (NEGATIVE); NITRITE,URINE NEGATIVE (NEGATIVE); PROTEIN,URINE NEGATIVE (NEGATIVE)
[2022-08-07 03:08] LABS: BACTERIA,URINE TRACE /HPF; WBC,URINE 0-2 /HPF
[2022-08-07] MEDS ORDERED: HYOS0.1283 SL (03:33)
[2022-08-07 03:43] VITALS: BP 118/72
== END 2022-08-07 03:43 | disposition home or self-care (01) ==
LOC: EDUNIT# 00:23 → ER 00:25
DX: K62.5 Hemorrhage of anus and rectum (principal); R10.84 Generalized abdominal pain; F17.290 Nicotine dependence, other tobacco product, uncomplicated; Z28.311 Partially vaccinated for COVID-19
CPT/HCPCS: 36415; 80053; 81000; 82274; 83690; 84703; 85025; 85610; 85730; 86141; 87015; 87045; 87046; 87324; 87449; 87899; 89055

== ENCOUNTER 2022-10-15 01:24 | Emergency (ER) | payer MEDICAID ==
[~2022-10-15] VITALS: Ht 165.1 cm; Wt 79.4 kg
[~2022-10-15 01:24] MED LIST changes: +HYOS0.1283 SL
--- NOTE | 2022-10-15 01:42 | ED Head Injury ---
General Chief Complaint: Head/Cervical Problems Stated Complaint: FALL, HIT HEAD Source: patient History of Present Illness Date Seen by Provider: Oct 15, 2022 Time Seen by Provider: 01:28 Initial Comments PT ARRIVES VIA POV FROM HOME SHE STATES THAT AROUND 1530 THIS AFTERNOON, SHE WAS RUNNING IN HER HOUSE, CHASING HER CHILD AND SHE FELL AND HIT HER FOREHEAD ON A WOODEN FLOOR NO LOSS OF CONSCIOUSNESS STATES HER VISION WAS A LITTLE BIT BLURRY A COUPLE OF TIMES, BUT IS NOT BLURRY N OW NO NAUSEA/VOMITING NO DIZZINESS, STATE SHE "JUST FEELS A LITTLE LOOPY" SHE ALSO C/O FRONTAL HEADACHE NO OTHER INJURIES FROM THE INCIDENT HAS NOT TAKEN ANYTHING FOR PAIN AT ANY TIME PT HAS HISTORY OF HEADACHES, BUT HAS NOT TAKEN ANYTHING FOR HER HEADACHE PT IS NOT ON ASPIRIN OR BLOOD THINNERS LMP 1 WEEK AGO, MIRENA IUD IN PLACE PT WENT TO WORK AT [employer] --WORKED HER NORMAL SHIFT FROM 1600-MIDNIGHT. SHE STATES "SOMEONE AT WORK TOLD ME I SHOULD COME HERE AND GET CHECKED OUT" PCP: DR. MENESES AT [facility] Allergies and Home Medications Allergies Uncoded Allergies: PCN (Allergy, Mild, RASH, 03/01/15) Patient Home Medication List Home Medication List Reviewed: Yes Cyclobenzaprine HCl (Cyclobenzaprine HCl) 10 Mg Tablet, 10 MG PO Q8H PRN for SPASMS Prescribed by: YVETTE STRANGE on 07/17/22 0239 Docusate Sodium (Dok) 100 Mg Capsule, 100 MG PO BID PRN for CONSTIPATION-1ST DEREK E Prescribed by: VAMSHI MADSEN on 07/01/21 1556 Hydrocodone Bit/Acetaminophen (HYDROcodone/APAP 5 MG/325 MG TAB) 1 Tab Tab, 1-2 EA PO Q6HR PRN for PAIN-MODERATE (5-7) Prescribed by: VAMSHI MADSEN on 07/01/21 1556 Hydroxyzine HCl (Hydroxyzine HCl) 50 Mg Tablet, 50 MG PO DAILY, (Reported) Entered as Reported by: LANEY DOCKERY on 07/01/21 0949 Hyoscyamine Sulfate (Levsin-Sl) 0.125 Mg Tab.subl, 0.125 MG SL Q4H Prescribed by: PRAKASH BECERRIL on 08/07/22 0333 Ibuprofen (Ibu) 600 Mg Tablet, 600 MG PO Q6HR Prescribed by: VAMSHI MADSEN on 07/01/21 1556 Naproxen (Naproxen) 500 Mg Tablet.dr, 500 MG PO BID Prescribed by: YVETTE STRANGE on 07/17/22 0239 Vit No.124/Iron/FA ( Vitamin Tablet) 1 Each Tablet, 1 EACH PO DAILY Prescribed by: JOCELYN MENESES on 06/08/20 1413 Review of Systems Review of Systems Constitutional: see HPI Eyes: See HPI Ears, Nose, Mouth, Throat: no symptoms reported Respiratory: no symptoms reported Cardiovascular: no symptoms reported Gastrointestinal: no symptoms reported Genitourinary: no symptoms reported Musculoskeletal: no symptoms reported; No neck pain Skin: no symptoms reported Psychiatric/Neurological: See HPI, Headache Endocrine: No Symptoms Reported Hematologic/Lymphatic: No Symptoms Reported Past Wetihgn-Qqxjag-Qjnrtm Hx Patient Social History Tobacco Use?: No Use of E-Cig and/or Vaping dev: Yes E-Cig or Vaping type used: Nicotine Use of E-Cig and/or Vaping Bob: Current Everyday User Substance use?: No Alcohol Use?: No Immunizations Up To Date Tetanus Booster (TDap): Less than 5yrs PED Vaccines UTD: Yes Influenza Vaccine Up-to-Date: No; Not Current First/Initial COVID19 Vaccinat: DECEMBER 2021 Second COVID19 Vaccination [place]: NONE Third COVID19 Vaccination Date: NONE COVID19 Vaccine Line Producer: SARAH Dixon Seasonal Allergies Seasonal Allergies: Yes Past Medical History Surgeries: No Respiratory: No Cardiac: No Neurological: Yes Headaches /Migraines Reproductive Disorders: Yes Female Reproductive Disorders: 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 Sexually Transmitted Disease: Yes (CHLAMYDIA AND TRICHOMONAS) Genitourinary: No Gastrointestinal: Yes Gastroesophageal Reflux, Hiatal Hernia Musculoskeletal: No Endocrine: No HEENT: No Cancer: No Psychosocial: Yes Anxiety, Depression Integumentary: No Blood Disorders: No Adverse Reaction/Blood Tranf: No Family Medical History FH: ovarian cancer 19 MOTHER Guillain-[place] syndrome 19 MOTHER No Pertinent Family Hx SOCIAL HISTORY: -ETOH--DENIES USE -DRUGS--+ THC USE -SMOKES 1/2 PPD Physical Exam Vital Signs Vital Signs - First Documented 10/15/22 01:29 Temp 36.1 Pulse 82 Resp 20 B/P (MAP) 105/70 (82) Pulse Ox 100 O2 Delivery Room Air Capillary Refill : Height, Weight, BMI Height: 5'5" Weight: 120lbs. oz. 54.762483cd; 29.00 BMI Method:Stated General Appearance: WD/WN, no apparent distress HEENT: PERRL/EOMI, normal ENT inspection, TMs normal, pharynx normal, other (NO EXTERNAL EVIDENCE OF TRAUMA AND NO TENDERNESS TO HEAD OR FACE) Neck: non-tender, full range of motion, supple, normal inspection Cardiovascular: regular rate, rhythm, no murmur Respiratory: chest non-tender, normal breath sounds, no respiratory distress, no accessory muscle use Gastrointestinal: non tender, soft Back: normal inspection, no CVA tenderness, no vertebral tenderness Extremities: normal range of motion, non-tender, normal inspection, normal capillary refill Psychiatric: alert, oriented x 3 Crainal Nerves: normal hearing, normal speech, PERRL Coordination/Gait: normal gait Motor/Sensory: no motor deficit, no sensory deficit Skin: normal color, warm/dry Progress/Results/Core Measures Results/Orders My Orders Orders - YVETTE STRANGE DO Ct Head Wo (10/15/22 01:35) Vital Signs/I&O 10/15/22 01:29 Temp 36.1 Pulse 82 Resp 20 B/P (MAP) 105/70 (82) Pulse Ox 100 O2 Delivery Room Air Progress Progress Note : Progress Note UNEVENTFUL ER STAY ANTICIPATED COURSE, SYMPTOMATIC TREATMENT, NEED FOR FOLLOW UP AND RETURN PRECAUTIONS DISCUSSED WITH PT. Diagnostic Imaging Comments CT HEAD--NO ACUTE PROCESS, PER [facility] VIA FAX AT 0898 Reviewed: Reviewed by Me Departure Impression Primary Impression: Fall from standing Additional Impression: Minor head injury without loss of consciousness Disposition: 01 HOME, SELF-CARE Condition: Stable Departure-Patient Inst. Decision time for Depature: 02:25 Referrals: JOCELYN MENESES MD (PCP/Family) Primary Care Physician Patient Instructions: Minor Head Injury, Adult ED, Preventing Falls ED Add. Discharge Instructions: HOME, REST LOTS OF CLEAR LIQUIDS TYLENOL AND MOTRIN NEEDED FOR PAIN FOLLOW UP WITH YOUR DR IN 2-3 DAYS IF NO BETTER All discharge instructions reviewed with patient and/or family. Voiced understanding. YVETTE STRANGE DO Oct 15, 2022 01:42
[2022-10-15 02:30] VITALS: BP 100/62
--- NOTE | 2022-10-15 07:23 | Diagnostic Imaging Report ---
INDICATION: FALL, HIT HEAD TECHNIQUE: Routine non contrast-enhanced axial images were obtained from the skull base to the vertex. Auto Exposure Controls were utilized during the CT exam to meet ALARA standards for radiation dose reduction COMPARISON: 07/27/2017 FINDINGS: The ventricles and cortical sulci are normal in size and contour. There is no midline shift or mass-effect. No acute intra-axial hemorrhage is seen. There are no abnormal areas of increased or decreased density to suggest acute hemorrhage or edema. No extra-axial masses or collections are present. The bony calvarium is intact. The visualized paranasal sinuses are unremarkable. The mastoid air cells are clear. IMPRESSION: 1. No acute intracranial abnormality. No CT evidence of mass, acute infarct or intracranial hemorrhage. Dictated by: Dictated on workstation # [id number]
== END 2022-10-15 02:30 | disposition home or self-care (01) ==
LOC: EDUNIT# 01:24 → ER 01:26
DX: S09.90XA Unspecified injury of head, initial encounter (principal); F17.219 Nicotine dependence, cigarettes, with unspecified nicotine-induced disorders; Z28.311 Partially vaccinated for COVID-19; W18.30XA Fall on same level, unspecified, initial encounter; W22.8XXA Striking against or struck by other objects, initial encounter; Y92.009 Unspecified place in unspecified non-institutional (private) residence as the place of occurrence of the external cause; Y93.02 Activity, running
CPT/HCPCS: 70450

== ENCOUNTER → 2022-11-25 | Outpatient (CLI) | payer MEDICAID ==
--- NOTE | 2022-11-25 15:02 | Diagnostic Imaging Report ---
PROCEDURE: Pelvic comp/transvaginal sonogram. TECHNIQUE: Complete transabdominal and transvaginal pelvic ultrasound was performed. In addition, limited pelvic Doppler was performed. INDICATION: Lost IUD string. Uterus is anteverted measuring 8.4 x 4.1 x 5.4 cm. Endometrium is 4 mm in thickness. The IUD appears to be appropriately centered in the endometrial canal. No myometrial mass is detected. Right ovary measures 3.2 x 2.1 x 2.5 cm and the left ovary measures 5.5 x 2.8 x 3.1 cm. The ovaries contain small follicles. There is a simple appearing cyst in the left ovary measuring 2.5 x 1.9 x 2.2 cm. There is blood flow to both ovaries. No free fluid is detected. IMPRESSION: 1. The IUD appears to be a appropriately centered in the endometrial canal. 2. 2.5 cm simple appearing left ovarian cyst. Dictated by: Dictated on workstation # [id number]
== END ==
LOC: RAD 11:41
PROVIDERS: ATTEND Obstetrics & Gynecology
DX: T83.89XA Other specified complication of genitourinary prosthetic devices, implants and grafts, initial encounter (principal); N83.202 Unspecified ovarian cyst, left side
CPT/HCPCS: 76830; 76856

== ENCOUNTER 2022-12-16 05:28 | Outpatient (CLI) | payer MEDICAID ==
[~2022-12-16] VITALS: Ht 165.1 cm; Wt 81.8 kg
== END 2022-12-18 10:16 | disposition home or self-care (01) ==
LOC: PREOP 05:28
PROVIDERS: ATTEND Obstetrics & Gynecology
DX: Z01.818 Encounter for other preprocedural examination (principal)